=== PATIENT | female | born 1970 | race Caucasian/White ===

== ENCOUNTER 2020-12-07 12:35 | Inpatient (IN) ==
[2020-12-07] MEDS ORDERED: guaiFENesin/CODEINE 10 ML UDC PO ONE (13:49)
[2020-12-07] MEDS ORDERED: DEXAMETHASONE 10 MG/ML VIAL IV ONE ×3 (13:49→19:40)
[2020-12-07] MEDS ORDERED: IPRATROPIUM/ALBUTEROL 3 ML AMPUL.NEB NEB ONE (13:49)
[2020-12-07] MEDS ORDERED: 0.9 % SODIUM CHLORIDE 1,000 ML IV ONE (13:50)
[2020-12-07 13:59] LABS: Hematocrit 42.1 % (34.1-44.9); Hemoglobin 14.6 g/dL (11.2-15.7); Mean Cell Volume 87.5 fL (80.0-100.0); Mean Corpuscular HGB Conc 34.7 g/dL (31.0-36.0); Mean Platelet Volume 10.9 fL (7.4-10.4); Platelet Count 111 K/mcL (140-440); RBC 4.81 M/mcL (3.59-5.38); WBC 7.8 K/mcL (4.5-11.0)
[2020-12-07 14:16] LABS: ALT/SGPT 37 U/L (<40); AST/SGOT 49 U/L (<32); Albumin 3.6 gm/dL (3.2-5.2); Albumin/Globulin Ratio 1.3 (1.0-2.3); Alkaline Phosphatase 45 U/L (39-117); Bilirubin,Total 0.3 mg/dL (0.1-1.0); Blood Urea Nitrogen 9 mg/dL (6-20); Calcium 8.8 mg/dL (8.6-10.4); Carbon Dioxide 22 mmol/L (22-30); Chloride 103 mmol/L (96-108); Globulin 2.8 gm/dL (2.2-3.7); Glomerular Filtration Rate 105; Glucose 91 mg/dL (70-105)
--- NOTE | 2020-12-07 14:19 | Emergency Department Note ---
SOB HPI General Chief Complaint: Shortness of Breath/Dyspnea Stated Complaint: Shortness of breath, covid, nausea Time Seen by Provider: 12/07/20 12:39 Source: patient Mode of arrival: ambulatory Limitations: no limitations History of Present Illness HPI Narrative: This is a 50-year-old female patient who was diagnosed with Covid 19 on Friday at [facility]. Her symptoms started on Friday. She was hypoxic during her evaluation sent home on a liter and a half of oxygen. Since then she has developed frequent diarrhea and worsening shortness of breath now requiring 4 L to keep her oxygen saturation above 94%. Patient does have a history of asthma and thinks she was having an asthma exacerbation about a week prior to development of her viral symptoms. She thought she turned a corner this past Friday, but then got progressively worse over the weekend. She is not vaccinated for Covid. Related Data Home Medications Medication Instructions Recorded Confirmed albuterol sulfate 2 puff INHALATION QID PRN 12/07/20 12/07/20 fluticasone propion-salmeterol 1 inh INHALATION DAILY 12/07/20 12/07/20 montelukast [Singulair] 10 mg PO QHS 12/07/20 12/07/20 Allergies Allergy/AdvReac Type Severity Reaction Status Date / Time codeine Allergy Hives Verified 12/07/20 19:54 iodine Allergy Hives Verified 12/07/20 19:54 morphine AdvReac Headache Verified 12/07/20 12:38 Review of Systems ROS ROS Narrative: Narrative: All systems ED: reviewed and negative except as stated. [facility] Narrative Patient History Narrative: Narrative: Medical/Surgical/Family History All Active Problems (Updated 12/07/20 @ 20:47 by Mima Cook PA-C) Pneumonia due to COVID-19 virus (Acute) Hypoxia (Acute) Social History Smoking Status: Never smoker Exam Narrative Narrative: General: AOx3, NAD, ill appearing. Dyspneic. Audible cough HEENT: PERRLA, EOMI, normocephalic. Moist mucous membranes. Normal facies and normal dentition. Respiratory: Coarse crackles throughout bilateral lung faulkner. Mild respiratory distress with labored breathing. O2 sats 95% on 5 L nasal cannula Heart: Regular rate and rhythm, no murmurs/clicks/rubs. Abdomen: Diffusely tender, nondistended. Extremities: Warm and well perfused. No edema. DP 2+ bilaterally. No venous stasis. Neuro: No focal deficits. Cranial nerves II-XII normal. Skin: Warm dry, no rashes or lesions, no cyanosis. Psych: Normal mood and affect Heme/Lymph: No abnormal bruising General Limitations: no limitations Course Course Course Narrative: 50-year-old female presents with COVID-19 and worsening hypoxia Reevaluation(s) Reevaluation #1: CBC, CMP Chest x-ray, EKG DuoNeb's in IV Decadron's 6 mg x 1 dose Give 1 L IV fluids in the setting of diarrhea Will likely need admission for worsening hypoxia Reevaluation #2: EKG shows normal sinus rhythm with no abnormal ST findings. She has left axis deviation and normal intervals. CBC without leukocytosis Chest x-ray shows bilateral moderate Covid pneumonia CMP with a mild elevation of her AST, otherwise no evidence of endorgan dysfunction Vital Signs Vital signs: Vital Signs Temperature 100.5 F H 12/07/20 12:38 Pulse Rate 92 H 12/07/20 12:38 Respiratory Rate 24 H 12/07/20 12:38 Blood Pressure 130/70 12/07/20 12:38 Pulse Oximetry (%) 87 L 12/07/20 12:38 Temperature 100.6 F H 12/07/20 18:19 Pulse Rate 99 H 12/07/20 18:46 Respiratory Rate 31 H 12/07/20 18:46 Blood Pressure 142/78 12/07/20 18:19 Pulse Oximetry (%) 92 12/07/20 18:46 [facility] Narrative Medical decision making narrative: COVID-19 pneumonia Acute hypoxic respiratory failure Patient has been given 6 mg of IV Decadron x1 dose. She is also received DuoNeb treatments. Given her increasing oxygen requirements she will need admission. Hospitalist has accepted the patient for admission. Lab Data Result diagrams: 12/07/20 13:18 12/07/20 13:18 Labs: Lab Results 12/07/20 12/07/20 12/07/20 Range/Units 13:18 13:18 13:18 WBC 7.8 (4.5-11.0) K/mcL RBC 4.81 (3.59-5.38) M/mcL Hgb 14.6 (11.2-15.7) g/dL Hct 42.1 (34.1-44.9) % MCV 87.5 (80.0-100.0) fL MCH 30.4 (26.0-34.0) pg MCHC 34.7 (31.0-36.0) g/dL RDW 13.0 (11.5-14.5) % Plt Count 111 L (140-440) K/mcL MPV 10.9 H (7.4-10.4) fL Seg Neutrophils % 75 (38-78) % Band Neutrophils % 6 (0-10) % Lymphocytes % 14 L (15-49) % Monocytes % (Manual) 1 (1-12) % Basophils % (Manual) 1 (0-2) % Reactive Lymphocytes 3 H (0-2) % Platelet Estimate Decreased A (Normal) RBC Morphology Normal (Normal) PT (11.9-14.5) sec INR (0.9-1.1) D-Dimer (0.27-0.50) ug/mL Sodium 138 (133-145) mmol/L Potassium 3.6 (3.3-5.1) mmol/L Chloride 103 (96-108) mmol/L Carbon Dioxide 22 (22-30) mmol/L Anion Gap 13.0 (8.0-16.0) BUN 9 (6-20) mg/dL Creatinine 0.6 (0.6-1.1) mg/dL GFR Calculation 105 Glucose 91 (70-105) mg/dL Calcium 8.8 (8.6-10.4) mg/dL Ferritin (13.0-150.0) ng/mL Total Bilirubin 0.3 (0.1-1.0) mg/dL AST 49 H (<32) U/L ALT 37 (<40) U/L Alkaline Phosphatase 45 (39-117) U/L Total Creatine Kinase (24-170) U/L Troponin T < 0.01 (<0.03) ng/mL C-Reactive Protein (0.03-0.80) mg/dL Total Protein 6.4 (5.9-8.4) gm/dL Albumin 3.6 (3.2-5.2) gm/dL Globulin 2.8 (2.2-3.7) gm/dL Albumin/Globulin Ratio 1.3 (1.0-2.3) 12/07/20 12/07/20 12/07/20 Range/Units 13:18 13:18 13:18 WBC (4.5-11.0) K/mcL RBC (3.59-5.38) M/mcL Hgb (11.2-15.7) g/dL Hct (34.1-44.9) % MCV (80.0-100.0) fL MCH (26.0-34.0) pg MCHC (31.0-36.0) g/dL RDW (11.5-14.5) % Plt Count (140-440) K/mcL MPV (7.4-10.4) fL Seg Neutrophils % (38-78) % Band Neutrophils % (0-10) % Lymphocytes % (15-49) % Monocytes % (Manual) (1-12) % Basophils % (Manual) (0-2) % Reactive Lymphocytes (0-2) % Platelet Estimate (Normal) RBC Morphology (Normal) PT 13.5 (11.9-14.5) sec INR 1.0 (0.9-1.1) D-Dimer (0.27-0.50) ug/mL Sodium (133-145) mmol/L Potassium (3.3-5.1) mmol/L Chloride (96-108) mmol/L Carbon Dioxide (22-30) mmol/L Anion Gap (8.0-16.0) BUN (6-20) mg/dL Creatinine (0.6-1.1) mg/dL GFR Calculation Glucose (70-105) mg/dL Calcium (8.6-10.4) mg/dL Ferritin 2037.0 H (13.0-150.0) ng/mL Total Bilirubin (0.1-1.0) mg/dL AST (<32) U/L ALT (<40) U/L Alkaline Phosphatase (39-117) U/L Total Creatine Kinase 371 H (24-170) U/L Troponin T (<0.03) ng/mL C-Reactive Protein 8.80 H (0.03-0.80) mg/dL Total Protein (5.9-8.4) gm/dL Albumin (3.2-5.2) gm/dL Globulin (2.2-3.7) gm/dL Albumin/Globulin Ratio (1.0-2.3) 12/07/20 Range/Units 13:18 WBC (4.5-11.0) K/mcL RBC (3.59-5.38) M/mcL Hgb (11.2-15.7) g/dL Hct (34.1-44.9) % MCV (80.0-100.0) fL MCH (26.0-34.0) pg MCHC (31.0-36.0) g/dL RDW (11.5-14.5) % Plt Count (140-440) K/mcL MPV (7.4-10.4) fL Seg Neutrophils % (38-78) % Band Neutrophils % (0-10) % Lymphocytes % (15-49) % Monocytes % (Manual) (1-12) % Basophils % (Manual) (0-2) % Reactive Lymphocytes (0-2) % Platelet Estimate (Normal) RBC Morphology (Normal) PT (11.9-14.5) sec INR (0.9-1.1) D-Dimer 0.79 H (0.27-0.50) ug/mL Sodium (133-145) mmol/L Potassium (3.3-5.1) mmol/L Chloride (96-108) mmol/L Carbon Dioxide (22-30) mmol/L Anion Gap (8.0-16.0) BUN (6-20) mg/dL Creatinine (0.6-1.1) mg/dL GFR Calculation Glucose (70-105) mg/dL Calcium (8.6-10.4) mg/dL Ferritin (13.0-150.0) ng/mL Total Bilirubin (0.1-1.0) mg/dL AST (<32) U/L ALT (<40) U/L Alkaline Phosphatase (39-117) U/L Total Creatine Kinase (24-170) U/L Troponin T (<0.03) ng/mL C-Reactive Protein (0.03-0.80) mg/dL Total Protein (5.9-8.4) gm/dL Albumin (3.2-5.2) gm/dL Globulin (2.2-3.7) gm/dL Albumin/Globulin Ratio (1.0-2.3) Discharge Plan Patient/Caregiver Discharge Instructions Pt seen by [employer]/PA only: Yes Clinical Impression: Pneumonia due to COVID-19 virus, Hypoxia Patient Disposition: Xfer As Inpt ([facility]) Discharge Date/Time: 12/07/20 18:03
[2020-12-07 14:26] LABS: Band Neutrophils % 6 % (0-10); Basophils % (Manual) 1 % (0-2); Lymphocytes % 14 % (15-49); Monocytes % (Manual) 1 % (1-12); Platelet Estimate DECREASED (Normal); RBC Morphology NORMAL (Normal); Reactive Lymphocytes 3 % (0-2); Segmented Neutrophils % 75 % (38-78)
--- NOTE | 2020-12-07 14:57 | XRay Report ---
HISTORY: Short of breath, tested positive for COVID FINDINGS: There are moderate alveolar infiltrates in both lungs. This is a patchy distribution. There is mild elevation right diaphragm. No pleural effusion is present. The heart size is normal. No prior study is available for comparison. IMPRESSION: Moderate bilateral Covid pneumonia Interpreted and Authenticated by: Jed Khan 12/07/20
--- NOTE | 2020-12-07 15:48 | Internal Med History&Physical ---
HPI History of Present Illness Patient information: Note initiated : 12/07/20 at 3:42 pm Service Date, if different from initiated Date: [] Patient: Sonia Pedro a 50 y/o F admitted on for Shortness of breath, covid, nausea. Chief Complaint: [] History of present illness: Ms. Pedro is a 50 year old F Presents to the ED with shortness of breath and cough. Patient was seen at [facility] on Friday and diagnosed with Covid pneumonia. She went back the next 2 days at [place] and was given oxygen. Because she was not feeling any better she came here. Symptoms also include fever chills diarrhea nausea but no vomiting. She feels her symptoms have worsened and she placed herself on 4 L to keep her oxygen above 94%. She developed some diarrhea as well. Patient states that over week ago she felt she had an asthma exacerbation and then felt to be improving especially on Friday but then Friday started becoming ill again. She is not vaccinated against Covid. In ED she had chest x-ray which showed bilateral infiltrates. She had a temperature of 100.5. 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 Denies headache/vomiting. Remaining 10 point review of system reviewed negative MEDS/ALLERGIES Home Medications and Allergies Allergies Allergy/AdvReac Type Severity Reaction Status Date / Time codeine Allergy Unknown Verified 12/07/20 12:38 iodine Allergy Unknown Verified 12/07/20 12:38 morphine AdvReac Headache Verified 12/07/20 12:38 EXAM Constitutional Vitals: Temp Pulse Resp BP Pulse Ox 100.5 F H 93 H 24 H 110/61 90 12/07/20 12:38 12/07/20 14:35 12/07/20 12:38 12/07/20 14:31 12/07/20 14:35 Exam: General: Alert, Awake, No acute Distress, obese Eyes/N/T: EOMI, PERRL, Head/Neck: neck supple, normocephalic atraumatic CV: RRR, No murmurs, normal s1/s2 Pulm: Rhonchi/rales b/l, no wheezing Abd: soft, nontender, +BS x4 Ext: no clubbing/cyanosis/edema Neuro: Alert, no focal deficits, moves all extremities, CN 2-12 grossly intact, symmetrical strength b/l upper/lower, sensations intact b/l upper/lower Skin: warm/dry DATA Data Completed and Pending Labs: Labs from last 24 hours 12/07/20 12/07/20 12/07/20 13:18 13:18 13:18 WBC 7.8 RBC 4.81 Hgb 14.6 Hct 42.1 MCV 87.5 MCH 30.4 MCHC 34.7 RDW 13.0 Plt Count 111 L MPV 10.9 H Seg Neutrophils % 75 Band Neutrophils % 6 Lymphocytes % 14 L Monocytes % (Manual) 1 Basophils % (Manual) 1 Reactive Lymphocytes 3 H Platelet Estimate Decreased A RBC Morphology Normal Sodium 138 Potassium 3.6 Chloride 103 Carbon Dioxide 22 Anion Gap 13.0 BUN 9 Creatinine 0.6 GFR Calculation 105 Glucose 91 Calcium 8.8 Total Bilirubin 0.3 AST 49 H ALT 37 Alkaline Phosphatase 45 Troponin T < 0.01 Total Protein 6.4 Albumin 3.6 Globulin 2.8 Albumin/Globulin Ratio 1.3 A/P Narrative A/P Narrative: A: *Covid pneumonia w/ : *Acute hypoxic respiratory failure: -on 4-5L NC *h/o Asthma: *Obesity: * P: -Remdesivir/dexamethasone -Check ABG -Check inflammatory markers -Proning, mobilization and oob to chair -IS, prn nebs/IH's - -ppx: lovenox bid full code Time Spent With Patient Time: Total time spent is greater than 50% in coordination of care (as documented) at patient's floor/unit and/or counseling patient:
[2020-12-07 17:00] LABS: Prothrombin Time 13.5 sec (11.9-14.5)
[2020-12-07] MEDS ORDERED: REMDESIVIR 200 MG in 0.9 % SODIUM CHLORIDE 250 ML IV ONE (17:00)
[2020-12-07] MEDS ORDERED: REMDESIVIR 100 MG in 0.9 % SODIUM CHLORIDE 250 ML IV SCH (18:12)
[2020-12-07] MEDS ORDERED: IPRATROPIUM/ALBUTEROL 3 ML AMPUL.NEB NEB PRN (18:12)
[2020-12-07] MEDS ORDERED: POLYETHYLENE GLYCOL 3350 17 GM PACKET PO PRN (18:12)
[2020-12-07] MEDS ORDERED: MAGNESIUM SULFATE 2 GM/50 ML BAG IV PRN (18:12)
[2020-12-07] MEDS ORDERED: POTASSIUM CHLORIDE 40 MEQ in DEXTROSE 5% IN WATER 500 ML IV PRN (18:12)
[2020-12-07] MEDS ORDERED: POTASSIUM CHLORIDE 20 MEQ TABLET PO PRN ×2 (18:12)
[2020-12-07] MEDS: MONTELUKAST 10 MG TABLET PO SCH (20:50)
[2020-12-07] MEDS: ENOXAPARIN 40 MG/0.4 ML SYRINGE SQ SCH (20:50)
[2020-12-07] MEDS: 0.9 % SODIUM CHLORIDE 10 ML SYRINGE IV SCH (20:52)
[2020-12-07] MEDS: IPRATROPIUM/ALBUTEROL SULFATE 1 PUFF INHALER INH SCH (21:00)
[2020-12-08] MEDS: 0.9 % SODIUM CHLORIDE 10 ML SYRINGE IV SCH ×3 (05:44→19:30)
[2020-12-08 07:45] LABS: Basophils # (Auto) 0 K/mcL (0.00-0.30); Basophils % (Auto) 0 % (0.0-2.0); Eosinophils # (Auto) 0 K/mcL (0.00-0.70); Eosinophils % (Auto) 0 % (0.0-7.0); Hemoglobin 14.6 g/dL (11.2-15.7); Lymphocytes # (Auto) 0.66 K/mcL (1.50-4.80); Lymphocytes % (Auto) 11.8 % (15.5-49.0); Mean Cell Volume 86.8 fL (80.0-100.0); Mean Corpuscular HGB Conc 34.8 g/dL (31.0-36.0); Mean Platelet Volume 10.8 fL (7.4-10.4); Monocytes # (Auto) 0.25 K/mcL (0.10-0.90); Monocytes % (Auto) 4.5 % (1.0-12.0); Neutrophils % (Auto) 83.7 % (38.0-78.0); Platelet Count 117 K/mcL (140-440); RBC 4.84 M/mcL (3.59-5.38); Red Cell Distribution Width 12.7 % (11.5-14.5); WBC 5.6 K/mcL (4.5-11.0)
--- NOTE | 2020-12-08 08:04 | Internal Med Progress Note ---
SUBJECTIVE Subjective Patient information: Note initiated : 12/08/20 at 8:01 am Service Date, if different from initiated Date: [] Patient: Sonia Pedro a 50 y/o F admitted on 12/07/20 for Shortness of breath, covid, nausea. Chief Complaint: [] Interval history: History of present illness: Ms. Pedro is a 50 year old F Presents to the ED with shortness of breath and cough. Patient was seen at [facility] on Friday and diagnosed with Covid pneumonia. She went back the next 2 days at [place] and was given oxygen. Because she was not feeling any better she came here. Symptoms also include fever chills diarrhea nausea but no vomiting. She feels her symptoms have worsened and she placed herself on 4 L to keep her oxygen above 94%. She developed some diarrhea as well. Patient states that over week ago she felt she had an asthma exacerbation and then felt to be improving especially on Friday but then Friday started becoming ill again. She is not vaccinated against Covid. In ED she had chest x-ray which showed bilateral infiltrates. She had a temperature of 100.5. 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 Breathing okay at rest but quite short of breath with movement. Inflammatory markers little worse today. Patient on Vapotherm FiO2 70%, patient worsened from the time she arrived in the ED. Has cough. Review of Systems: denies headache/fever/chills/nausea/vomiting/chest or abdominal pain/diarrhea. Otherwise see above. Constitutional Vitals: Vital Signs Temp Pulse Resp BP Pulse Ox 98.9 F 83 24 H 121/75 93 12/08/20 04:01 12/08/20 06:01 12/08/20 06:01 12/08/20 06:01 12/08/20 06:01 Period Temp Pulse Resp BP Sys/Lion Pulse Ox Last 24 Hr 98.0 F-100.6 F 76-99 17-34 94-143/56-91 6-96 Intake and Output 12/07/20 12/08/20 12/08/20 21:59 05:59 13:59 Intake Total 1280 Output Total 525 401 275 Balance 755 -401 -275 Weight 80.694 kg Intake & Output: Intake & Output 12/07/20 12/08/20 12/08/20 21:59 05:59 13:59 Intake Total 1280 Output Total 525 401 275 Balance 755 -401 -275 Weight 80.694 kg Intake: IV 1250 Sodium Chloride 0.9% 1,000 ml @ 1000 Wide Open IV BOLUS ONE Rx#: [id number] Veklury 200 mg In Sodium 250 Chloride 0.9% 250 ml @ 500 mls/ hr IV ONCE ONE Rx#:[id number] Oral 30 Output: Void Amount 525 400 275 # of times incontinent of urine 1 Other: Urine Appearance Clear Clear Clear Urine Color Bright Yellow Bright Yellow Bright Yellow Urine Odor Normal Normal Normal Exam: General: Alert, Awake, No acute Distress, obese Eyes/N/T: EOMI, Head/Neck: neck supple, CV: RRR, No murmurs, normal s1/s2 Pulm: Rhonchi/rales b/l, no wheezing Abd: soft, nontender, +BS x4 Ext: no clubbing/cyanosis/edema Neuro: Alert, no focal deficits, moves all extremities, Skin: warm/dry OBJ DATA Labs CBC & Chem 7: 12/08/20 05:53 12/08/20 05:53 Labs: Abnormal Lab Results 12/08/20 12/08/20 12/07/20 05:54 05:53 13:18 Plt Count 117 L MPV 10.8 H Neut % (Auto) 83.7 H Lymph % (Auto) 11.8 L Lymph # (Auto) 0.66 L Lymphocytes % Reactive Lymphocytes Platelet Estimate D-Dimer 0.79 H Ferritin AST Total Creatine Kinase 449 H C-Reactive Protein 12/07/20 12/07/20 12/07/20 13:18 13:18 13:18 Plt Count MPV Neut % (Auto) Lymph % (Auto) Lymph # (Auto) Lymphocytes % Reactive Lymphocytes Platelet Estimate D-Dimer Ferritin 2037.0 H AST 49 H Total Creatine Kinase 371 H C-Reactive Protein 8.80 H 12/07/20 13:18 Plt Count 111 L MPV 10.9 H Neut % (Auto) Lymph % (Auto) Lymph # (Auto) Lymphocytes % 14 L Reactive Lymphocytes 3 H Platelet Estimate Decreased A D-Dimer Ferritin AST Total Creatine Kinase C-Reactive Protein Meds: Medications Acetaminophen (Acetaminophen 325 Mg Tablet) 650 mg PO Q6HP PRN PRN Reason: PAIN/FEVER > 101 Albuterol/Ipratropium (Ipratropium/Albuterol 3 Ml Ampul.Neb) 3 ml NEB Q4HP PRN PRN Reason: Shortness Of Breath Albuterol/Ipratropium (Ipratropium/Albuterol Sulfate 1 Puff Inhaler) 2 puff INH TID [facility] Last Admin: 12/07/20 21:00 Dose: Not Given Documented by: Dexamethasone (Dexamethasone 4 Mg Tablet) 6 mg PO DAILY [facility] Enoxaparin Sodium (Enoxaparin 40 Mg/0.4 Ml Syringe) 40 mg SQ BID [facility] Last Admin: 12/07/20 20:50 Dose: 40 mg Documented by: Potassium Chloride 40 meq/ (Dextrose) 520 mls @ 130 mls/hr IV UD PRN PRN Reason: Potassium < 3 Magnesium Sulfate (Magnesium Sulfate) 2 gm in 50 mls @ 50 mls/hr IV UD PRN PRN Reason: Magnesium </= 1.6 REMDESIVIR 100 mg/ Sodium (Chloride) 250 mls @ 500 mls/hr IV DAILY@1200 [facility] Stop: 12/11/20 12:29 Montelukast Sodium (Montelukast 10 Mg Tablet) 10 mg PO HS [facility] Last Admin: 12/07/20 20:50 Dose: 10 mg Documented by: Ondansetron HCl (Ondansetron 4 Mg/2 Ml Vial) 4 mg IV Q4HP PRN PRN Reason: Nausea And Vomiting Polyethylene Glycol (Polyethylene Glycol 3350 17 Gm Packet) 17 gm PO DAILYP PRN PRN Reason: Constipation Potassium Chloride (Potassium Chloride 20 Meq Tablet) 40 meq PO UD PRN PRN Reason: Potssium is 3-3.5 Potassium Chloride (Potassium Chloride 20 Meq Tablet) 40 meq PO UD PRN PRN Reason: Potassium < 3 Fluticasone/Salmeterol (Fluticasone/Salmeterol 250/50 Inhaler #14) 1 puff INH DAILY [facility] Senna (Sennosides 1 Tablet) 2 tab PO DAILYP PRN PRN Reason: Constipation Sodium Chloride (0.9 % Sodium Chloride 10 Ml Syringe) 10 ml IV Q8 [facility] Last Admin: 12/08/20 05:44 Dose: 10 ml Documented by: Zinc Sulfate (Zinc Sulfate 50 Mg Capsule) 50 mg PO DAILY [facility] A/P Narrative A/P Narrative: A: *Covid pneumonia w/ARDS: worsening *Acute hypoxic respiratory failure: -on vapotherm @ 70% & 45 l/m *h/o Asthma: *Obesity: *thrombocytopenia, unknown chronicity: P: -Remdesivir/dexamethasone -f/u inflammatory markers -Proning, mobilization and oob to chair -IS, prn nebs/IH's -pt/ot -ppx: lovenox bid full code Time Spent With Patient Time: Total time spent is greater than 50% in coordination of care (as doc umented) at patient's floor/unit and/or counseling patient: QUALITY Stroke Symptom Onset Unknown: No VTE Deep Vein Thrombosis/Pulmonary Embolism Present on Admission: No
[2020-12-08 08:08] LABS: ALT/SGPT 39 U/L (<40); AST/SGOT 53 U/L (<32); Albumin 3.4 gm/dL (3.2-5.2); Albumin/Globulin Ratio 1.1 (1.0-2.3); Alkaline Phosphatase 45 U/L (39-117); Bilirubin,Direct < 0.2 mg/dL (0-0.3); Bilirubin,Total 0.3 mg/dL (0.1-1.0); Blood Urea Nitrogen 9 mg/dL (6-20); Calcium 8.8 mg/dL (8.6-10.4); Carbon Dioxide 20 mmol/L (22-30); Chloride 97 mmol/L (96-108); Globulin 3.1 gm/dL (2.2-3.7); Glomerular Filtration Rate 111; Glucose 109 mg/dL (70-105); Lactate Dehydrogenase 644 U/L (135-225); Phosphorous 3.1 mg/dL (2.5-4.5); Triglycerides 108 mg/dL (<150); Uric Acid 5.3 mg/dL (2.5-8.0)
[2020-12-08] MEDS: ENOXAPARIN 40 MG/0.4 ML SYRINGE SQ SCH ×2 (08:28→20:42)
[2020-12-08] MEDS: ZINC SULFATE 50 MG CAPSULE PO SCH (08:28)
[2020-12-08] MEDS: DEXAMETHASONE 4 MG TABLET PO SCH (08:28)
[2020-12-08] MEDS: ACETAMINOPHEN 325 MG TABLET PO PRN (08:28)
[2020-12-08] MEDS: BENZONATATE 100 MG CAPSULE PO PRN ×3 (10:25→23:20)
[2020-12-08] MEDS ORDERED: SODIUM CHLORIDE 0.9% IV ONE (11:00)
[2020-12-08] MEDS ORDERED: TOCILIZUMAB IV ONE (11:00)
[2020-12-08] MEDS: FLUTICASONE/SALMETEROL 250/50 INHALER #14 INH SCH (11:37)
[2020-12-08] MEDS: IPRATROPIUM/ALBUTEROL SULFATE 1 PUFF INHALER INH SCH (11:37)
[2020-12-08] MEDS: REMDESIVIR 100 MG in 0.9 % SODIUM CHLORIDE 250 ML IV SCH (13:00)
[2020-12-08] MEDS: HYDROcodone/APAP 5/325MG TABLET PO PRN ×2 (16:39→20:42)
[2020-12-08] MEDS: MONTELUKAST 10 MG TABLET PO SCH (20:42)
[2020-12-09] MEDS: HYDROcodone/APAP 5/325MG TABLET PO PRN ×4 (02:36→18:37)
[2020-12-09] MEDS: 0.9 % SODIUM CHLORIDE 10 ML SYRINGE IV SCH ×4 (02:55→19:00)
[2020-12-09 08:04] LABS: ALT/SGPT 42 U/L (<40); AST/SGOT 45 U/L (<32); Albumin 3.2 gm/dL (3.2-5.2); Albumin/Globulin Ratio 1.1 (1.0-2.3); Alkaline Phosphatase 40 U/L (39-117); Bilirubin,Direct < 0.2 mg/dL (0-0.3); Bilirubin,Total 0.3 mg/dL (0.1-1.0); Blood Urea Nitrogen 16 mg/dL (6-20); Calcium 8.7 mg/dL (8.6-10.4); Carbon Dioxide 25 mmol/L (22-30); Chloride 99 mmol/L (96-108); Globulin 2.8 gm/dL (2.2-3.7); Glomerular Filtration Rate 111; Glucose 185 mg/dL (70-105); Lactate Dehydrogenase 578 U/L (135-225); Phosphorous 2.8 mg/dL (2.5-4.5); Triglycerides 144 mg/dL (<150); Uric Acid 4.3 mg/dL (2.5-8.0)
--- NOTE | 2020-12-09 08:14 | Internal Med Progress Note ---
SUBJECTIVE Subjective Patient information: Note initiated : 12/09/20 at 8:12 am Service Date, if different from initiated Date: [] Patient: Sonia Pedro a 50 y/o F admitted on 12/07/20 for Shortness of breath, covid, nausea. Chief Complaint: [] Interval history: History of present illness: Ms. Pedro is a 50 year old F Presents to the ED with shortness of breath and cough. Patient was seen at [facility] on Friday and diagnosed with Covid pneumonia. She went back the next 2 days at [place] and was given oxygen. Because she was not feeling any better she came here. Symptoms also include fever chills diarrhea nausea but no vomiting. She feels her symptoms have worsened and she placed herself on 4 L to keep her oxygen above 94%. She developed some diarrhea as well. Patient states that over week ago she felt she had an asthma exacerbation and then felt to be improving especially on Friday but then Friday started becoming ill again. She is not vaccinated against Covid. In ED she had chest x-ray which showed bilateral infiltrates. She had a temperature of 100.5. 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 Breathing okay at rest but quite short of breath with movement. Inflammatory markers little worse today. Patient on Vapotherm FiO2 70%, patient worsened from the time she arrived in the ED. Has cough. 12/09 Patient feeling better today and slept well. She feels she is able to move around in her bed without becoming severely short of breath. FiO2 down to 65%. Has cough. Review of Systems: denies headache/fever/chills/nausea/vomiting/chest or abdominal pain/diarrhea. Otherwise see above. Constitutional Vitals: Vital Signs Temp Pulse Resp BP Pulse Ox 98.5 F 64 19 97/57 90 12/09/20 04:01 12/09/20 07:30 12/09/20 07:30 12/09/20 06:01 12/09/20 07:30 Period Temp Pulse Resp BP Sys/Lion Pulse Ox Last 24 Hr 97.2 F-98.5 F 56-85 15-23 95-145/57-87 90-96 Intake and Output 12/08/20 12/09/20 12/09/20 21:59 05:59 13:59 Intake Total 690 240 Output Total 500 250 250 Balance 190 -10 -250 Weight 78.381 kg Intake & Output: Intake & Output 12/08/20 12/09/20 12/09/20 21:59 05:59 13:59 Intake Total 690 240 Output Total 500 250 250 Balance 190 -10 -250 Weight 78.381 kg Intake: Nourishment/Supplement quantity 240 240 (ml) Oral 450 Output: Void Amount 500 250 250 Other: Meal Nourishment/Supplement Nourishment/Supplement Nourishment/Supplement name Ensure Clear Ensure Clear Urine Appearance Clear Clear Cloudy Urine Color Bright Yellow Bright Yellow Bright Yellow Urine Odor Normal Normal Normal Exam: General: Alert, Awake, No acute Distress, obese Eyes/N/T: EOMI, Head/Neck: neck supple, CV: RRR, No murmurs, normal s1/s2 Pulm: Rhonchi/rales b/l improving, no wheezing Abd: soft, nontender, +BS x4 Ext: no clubbing/cyanosis/edema Neuro: Alert, no focal deficits, moves all extremities, Skin: warm/dry OBJ DATA Labs CBC & Chem 7: 12/08/20 05:53 12/09/20 05:44 Labs: Abnormal Lab Results 12/09/20 12/09/20 12/08/20 05:44 05:44 05:54 Plt Count MPV Neut % (Auto) Lymph % (Auto) Lymph # (Auto) Lymphocytes % Reactive Lymphocytes Platelet Estimate D-Dimer Carbon Dioxide Anion Gap Creatinine 0.5 L Glucose 185 H Ferritin AST 45 H ALT 42 H Lactate Dehydrogenase 578 H Total Creatine Kinase 456 H 449 H C-Reactive Protein 3.70 H 12/08/20 12/08/20 12/07/20 05:53 05:53 13:18 Plt Count 117 L MPV 10.8 H Neut % (Auto) 83.7 H Lymph % (Auto) 11.8 L Lymph # (Auto) 0.66 L Lymphocytes % Reactive Lymphocytes Platelet Estimate D-Dimer 0.79 H Carbon Dioxide 20 L Anion Gap 17.0 H Creatinine 0.5 L Glucose 109 H Ferritin 2562.0 H AST 53 H ALT Lactate Dehydrogenase 644 H Total Creatine Kinase C-Reactive Protein 11.10 H 12/07/20 12/07/20 12/07/20 13:18 13:18 13:18 Plt Count MPV Neut % (Auto) Lymph % (Auto) Lymph # (Auto) Lymphocytes % Reactive Lymphocytes Platelet Estimate D-Dimer Carbon Dioxide Anion Gap Creatinine Glucose Ferritin 2037.0 H AST 49 H ALT Lactate Dehydrogenase Total Creatine Kinase 371 H C-Reactive Protein 8.80 H 12/07/20 13:18 Plt Count 111 L MPV 10.9 H Neut % (Auto) Lymph % (Auto) Lymph # (Auto) Lymphocytes % 14 L Reactive Lymphocytes 3 H Platelet Estimate Decreased A D-Dimer Carbon Dioxide Anion Gap Creatinine Glucose Ferritin AST ALT Lactate Dehydrogenase Total Creatine Kinase C-Reactive Protein Meds: Medications Acetaminophen (Acetaminophen 325 Mg Tablet) 650 mg PO Q6HP PRN PRN Reason: PAIN/FEVER > 101 Last Admin: 12/08/20 08:28 Dose: 650 mg Documented by: Hydrocodone Bitart/Acetaminophen (Hydrocodone/Apap 5/325mg Tablet) 1 tab PO Q4HP PRN; Protocol PRN Reason: Per Pain Protocol Last Admin: 12/09/20 02:36 Dose: 1 tab Documented by: Albuterol/Ipratropium (Ipratropium/Albuterol 3 Ml Ampul.Neb) 3 ml NEB Q4HP PRN PRN Reason: Shortness Of Breath Benzonatate (Benzonatate 100 Mg Capsule) 200 mg PO TIDP PRN PRN Reason: Cough Last Admin: 12/08/20 23:20 Dose: 200 mg Documented by: Dexamethasone (Dexamethasone 4 Mg Tablet) 6 mg PO DAILY [facility] Last Admin: 12/08/20 08:28 Dose: 6 mg Documented by: Enoxaparin Sodium (Enoxaparin 40 Mg/0.4 Ml Syringe) 40 mg SQ BID [facility] Last Admin: 12/08/20 20:42 Dose: 40 mg Documented by: Potassium Chloride 40 meq/ (Dextrose) 520 mls @ 130 mls/hr IV UD PRN PRN Reason: Potassium < 3 Magnesium Sulfate (Magnesium Sulfate) 2 gm in 50 mls @ 50 mls/hr IV UD PRN PRN Reason: Magnesium </= 1.6 REMDESIVIR 100 mg/ Sodium (Chloride) 250 mls @ 500 mls/hr IV DAILY@1200 [facility] Stop: 12/11/20 12:29 Last Infusion: 12/08/20 13:31 Dose: Infused Documented by: Montelukast Sodium (Montelukast 10 Mg Tablet) 10 mg PO HS [facility] Last Admin: 12/08/20 20:42 Dose: 10 mg Documented by: Ondansetron HCl (Ondansetron 4 Mg/2 Ml Vial) 4 mg IV Q4HP PRN PRN Reason: Nausea And Vomiting Polyethylene Glycol (Polyethylene Glycol 3350 17 Gm Packet) 17 gm PO DAILYP PRN PRN Reason: Constipation Potassium Chloride (Potassium Chloride 20 Meq Tablet) 40 meq PO UD PRN PRN Reason: Potssium is 3-3.5 Potassium Chloride (Potassium Chloride 20 Meq Tablet) 40 meq PO UD PRN PRN Reason: Potassium < 3 Fluticasone/Salmeterol (Fluticasone/Salmeterol 250/50 Inhaler #14) 1 puff INH DAILY [facility] Last Admin: 12/08/20 11:37 Dose: Not Given Documented by: Senna (Sennosides 1 Tablet) 2 tab PO DAILYP PRN PRN Reason: Constipation Sodium Chloride (0.9 % Sodium Chloride 10 Ml Syringe) 10 ml IV Q8 [facility] Last Admin: 12/09/20 05:45 Dose: 10 ml Documented by: Zinc Sulfate (Zinc Sulfate 50 Mg Capsule) 50 mg PO DAILY [facility] Last Admin: 12/08/20 08:28 Dose: 50 mg Documented by: A/P Narrative A/P Narrative: A: *Covid pneumonia w/ARDS: stable today *Acute hypoxic respiratory failure: -on vapotherm @ 65% & 45 l/m *h/o Asthma: *Obesity: *thrombocytopenia, unknown chronicity: stable P: -Remdesivir/dexamethasone. s/p Tocilizumab (12/08). -f/u inflammatory markers -O2 supp, wean as able -IS, prn nebs/IH's -Proning, mobilization and oob to chair -pt/ot -ppx: lovenox bid full code Time Spent With Patient Time: Total time spent is greater than 50% in coordination of care (as documented) at patient's floor/unit and/or counseling patient: QUALITY Stroke Symptom Onset Unknown: No VTE Deep Vein Thrombosis/Pulmonary Embolism Present on Admission: No
[2020-12-09] MEDS: FLUTICASONE/SALMETEROL 250/50 INHALER #14 INH SCH (08:28)
[2020-12-09] MEDS: DEXAMETHASONE 4 MG TABLET PO SCH (08:29)
[2020-12-09] MEDS: BENZONATATE 100 MG CAPSULE PO PRN ×2 (08:29→17:15)
[2020-12-09] MEDS: ZINC SULFATE 50 MG CAPSULE PO SCH (08:29)
[2020-12-09] MEDS: ENOXAPARIN 40 MG/0.4 ML SYRINGE SQ SCH ×2 (08:30→20:48)
[2020-12-09] MEDS: REMDESIVIR 100 MG in 0.9 % SODIUM CHLORIDE 250 ML IV SCH (12:33)
[2020-12-09] MEDS: BENZOCAINE/MENTHOL 1 LOZENGE PO PRN (12:33)
[2020-12-09] MEDS: MONTELUKAST 10 MG TABLET PO SCH (20:48)
[2020-12-10] MEDS: BENZONATATE 100 MG CAPSULE PO PRN ×2 (00:50→13:31)
[2020-12-10] MEDS: HYDROcodone/APAP 5/325MG TABLET PO PRN ×4 (00:50→19:26)
[2020-12-10] MEDS: 0.9 % SODIUM CHLORIDE 10 ML SYRINGE IV SCH ×4 (05:30→22:00)
[2020-12-10] MEDS: BENZOCAINE/MENTHOL 1 LOZENGE PO PRN ×2 (07:05→17:52)
--- NOTE | 2020-12-10 08:30 | Internal Med Progress Note ---
SUBJECTIVE Subjective Patient information: Note initiated : 12/10/20 at 8:27 am Service Date, if different from initiated Date: [] Patient: Sonia Pedro a 50 y/o F admitted on 12/07/20 for Shortness of breath, covid, nausea. Chief Complaint: [] Interval history: History of present illness: Ms. Pedro is a 50 year old F Presents to the ED with shortness of breath and cough. Patient was seen at [facility] on Friday and diagnosed with Covid pneumonia. She went back the next 2 days at [place] and was given oxygen. Because she was not feeling any better she came here. Symptoms also include fever chills diarrhea nausea but no vomiting. She feels her symptoms have worsened and she placed herself on 4 L to keep her oxygen above 94%. She developed some diarrhea as well. Patient states that over week ago she felt she had an asthma exacerbation and then felt to be improving especially on Friday but then Friday started becoming ill again. She is not vaccinated against Covid. In ED she had chest x-ray which showed bilateral infiltrates. She had a temperature of 100.5. 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 Breathing okay at rest but quite short of breath with movement. Inflammatory markers little worse today. Patient on Vapotherm FiO2 70%, patient worsened from the time she arrived in the ED. Has cough. 12/09 Patient feeling better today and slept well. She feels she is able to move around in her bed without becoming severely short of breath. FiO2 down to 65%. Has cough. 12/10 Patient feels like she is slowly improving. FiO2 down to 50% with a flow 35. Laboratory markers improving. Minimal cough. Less shortness of breath. Review of Systems: denies headache/fever/chills/nausea/vomiting/chest or abdominal pain/diarrhea. Otherwise see above. Constitutional Vitals: Vital Signs Temp Pulse Resp BP Pulse Ox 97.9 F 62 14 107/78 90 12/10/20 08:01 12/10/20 08:01 12/10/20 08:01 12/10/20 08:01 12/10/20 08:01 Period Temp Pulse Resp BP Sys/Lion Pulse Ox Last 24 Hr 97.9 F-98.4 F 51-66 12-23 97-138/59-79 90-97 Intake and Output 12/09/20 12/10/20 12/10/20 21:59 05:59 13:59 Intake Total 540 120 Output Total 125 375 Balance 415 -255 Weight 79.605 kg Intake & Output: Intake & Output 12/09/20 12/10/20 12/10/20 21:59 05:59 13:59 Intake Total 540 120 Output Total 125 375 Balance 415 -255 Weight 79.605 kg Intake: Nourishment/Supplement quantity 240 (ml) Oral 300 120 Output: Void Amount 125 375 Other: Meal Dinner Percent of Meal Consumed 75% Feeding Ability Independent Nourishment/Supplement name Ensure Clear Urine Appearance Cloudy Cloudy Cloudy Urine Color Bright Yellow Bright Yellow Urine Odor Strong Normal Exam: General: Alert, Awake, No acute Distress, obese Eyes/N/T: EOMI, Head/Neck: neck supple, CV: RRR, No murmurs, normal s1/s2 Pulm: Rhonchi/rales b/l continue to improve, no wheezing Abd: soft, nontender, +BS x4 Ext: no clubbing/cyanosis/edema Neuro: Alert, no focal deficits, moves all extremities, Skin: warm/dry OBJ DATA Labs CBC & Chem 7: 12/08/20 05:53 12/09/20 05:44 Labs: Abnormal Lab Results 12/09/20 12/09/20 12/08/20 05:44 05:44 05:54 Plt Count MPV Neut % (Auto) Lymph % (Auto) Lymph # (Auto) Lymphocytes % Reactive Lymphocytes Platelet Estimate D-Dimer Carbon Dioxide Anion Gap Creatinine 0.5 L Glucose 185 H Ferritin AST 45 H ALT 42 H Lactate Dehydrogenase 578 H Total Creatine Kinase 456 H 449 H C-Reactive Protein 3.70 H 12/08/20 12/08/20 12/07/20 05:53 05:53 13:18 Plt Count 117 L MPV 10.8 H Neut % (Auto) 83.7 H Lymph % (Auto) 11.8 L Lymph # (Auto) 0.66 L Lymphocytes % Reactive Lymphocytes Platelet Estimate D-Dimer 0.79 H Carbon Dioxide 20 L Anion Gap 17.0 H Creatinine 0.5 L Glucose 109 H Ferritin 2562.0 H AST 53 H ALT Lactate Dehydrogenase 644 H Total Creatine Kinase C-Reactive Protein 11.10 H 12/07/20 12/07/20 12/07/20 13:18 13:18 13:18 Plt Count MPV Neut % (Auto) Lymph % (Auto) Lymph # (Auto) Lymphocytes % Reactive Lymphocytes Platelet Estimate D-Dimer Carbon Dioxide Anion Gap Creatinine Glucose Ferritin 2037.0 H AST 49 H ALT Lactate Dehydrogenase Total Creatine Kinase 371 H C-Reactive Protein 8.80 H 12/07/20 13:18 Plt Count 111 L MPV 10.9 H Neut % (Auto) Lymph % (Auto) Lymph # (Auto) Lymphocytes % 14 L Reactive Lymphocytes 3 H Platelet Estimate Decreased A D-Dimer Carbon Dioxide Anion Gap Creatinine Glucose Ferritin AST ALT Lactate Dehydrogenase Total Creatine Kinase C-Reactive Protein Meds: Medications Acetaminophen (Acetaminophen 325 Mg Tablet) 650 mg PO Q6HP PRN PRN Reason: PAIN/FEVER > 101 Last Admin: 12/08/20 08:28 Dose: 650 mg Documented by: Hydrocodone Bitart/Acetaminophen (Hydrocodone/Apap 5/325mg Tablet) 1 tab PO Q4HP PRN; Protocol PRN Reason: Per Pain Protocol Last Admin: 12/10/20 07:07 Dose: 1 tab Documented by: Albuterol/Ipratropium (Ipratropium/Albuterol 3 Ml Ampul.Neb) 3 ml NEB Q4HP PRN PRN Reason: Shortness Of Breath Benzonatate (Benzonatate 100 Mg Capsule) 200 mg PO TIDP PRN PRN Reason: Cough Last Admin: 12/10/20 00:50 Dose: 200 mg Documented by: Dexamethasone (Dexamethasone 4 Mg Tablet) 6 mg PO DAILY [facility] Last Admin: 12/09/20 08:29 Dose: 6 mg Documented by: Enoxaparin Sodium (Enoxaparin 40 Mg/0.4 Ml Syringe) 40 mg SQ BID [facility] Last Admin: 12/09/20 20:48 Dose: 40 mg Documented by: Potassium Chloride 40 meq/ (Dextrose) 520 mls @ 130 mls/hr IV UD PRN PRN Reason: Potassium < 3 Magnesium Sulfate (Magnesium Sulfate) 2 gm in 50 mls @ 50 mls/hr IV UD PRN PRN Reason: Magnesium </= 1.6 REMDESIVIR 100 mg/ Sodium (Chloride) 250 mls @ 500 mls/hr IV DAILY@1200 [facility] Stop: 12/11/20 12:29 Last Infusion: 12/09/20 13:05 Dose: Infused Documented by: Montelukast Sodium (Montelukast 10 Mg Tablet) 10 mg PO HS [facility] Last Admin: 12/09/20 20:48 Dose: 10 mg Documented by: Ondansetron HCl (Ondansetron 4 Mg/2 Ml Vial) 4 mg IV Q4HP PRN PRN Reason: Nausea And Vomiting Polyethylene Glycol (Polyethylene Glycol 3350 17 Gm Packet) 17 gm PO DAILYP PRN PRN Reason: Constipation Potassium Chloride (Potassium Chloride 20 Meq Tablet) 40 meq PO UD PRN PRN Reason: Potssium is 3-3.5 Potassium Chloride (Potassium Chloride 20 Meq Tablet) 40 meq PO UD PRN PRN Reason: Potassium < 3 Fluticasone/Salmeterol (Fluticasone/Salmeterol 250/50 Inhaler #14) 1 puff INH DAILY [facility] Last Admin: 12/09/20 08:28 Dose: 1 dose Documented by: Senna (Sennosides 1 Tablet) 2 tab PO DAILYP PRN PRN Reason: Constipation Sodium Chloride (0.9 % Sodium Chloride 10 Ml Syringe) 10 ml IV Q8 [facility] Last Admin: 12/10/20 05:30 Dose: 10 ml Documented by: Throat Lozenges (Benzocaine/Menthol 1 Lozenge) 1 lozenge PO Q2 PRN PRN Reason: Sore throat/cough Last Admin: 12/10/20 07:05 Dose: 1 lozenge Documented by: Zinc Sulfate (Zinc Sulfate 50 Mg Capsule) 50 mg PO DAILY [facility] Last Admin: 12/09/20 08:29 Dose: 50 mg Documented by: A/P Narrative A/P Narrative: A: *Covid pneumonia w/ARDS: *Acute hypoxic respiratory failure: -on vapotherm @ fio2 50% & 35 l/m *h/o Asthma: *Obesity: *thrombocytopenia, unknown chronicity: stable P: -Remdesivir/dexamethasone. s/p Tocilizumab (12/08) -f/u inflammatory markers -O2 supp, wean as able -IS, prn nebs/IH's -Proning, mobilization and oob to chair -pt/ot -ppx: lovenox bid full code Time Spent With Patient Time: Total time spent is greater than 50% in coordination of care (as documented) at patient's floor/unit and/or counseling patient: QUALITY Stroke Symptom Onset Unknown: No VTE Deep Vein Thrombosis/Pulmonary Embolism Present on Admission: No
[2020-12-10] MEDS: FLUTICASONE/SALMETEROL 250/50 INHALER #14 INH SCH (09:11)
[2020-12-10] MEDS: DEXAMETHASONE 4 MG TABLET PO SCH (09:11)
[2020-12-10] MEDS: ZINC SULFATE 50 MG CAPSULE PO SCH (09:11)
[2020-12-10 09:12] LABS: C-Reactive Protein 1.7 mg/dL (0.03-0.80)
[2020-12-10] MEDS: ENOXAPARIN 40 MG/0.4 ML SYRINGE SQ SCH ×2 (09:12→21:15)
[2020-12-10] MEDS: REMDESIVIR 100 MG in 0.9 % SODIUM CHLORIDE 250 ML IV SCH (12:34)
[2020-12-10 14:54] LABS: Appearance,Urine HAZY (Clear); Bacteria,Urine MANY /hpf (0); Bilirubin,Urine Negative (Negative); Color,Urine Yellow; Culture Indicated,Urine yes; Glucose,Urine (UA) Negative (Negative); Ketones,Urine Negative (Negative); Leukocyte Esterase,Urine 75 /ug (Negative); Mucus,Urine MANY /hpf; Nitrate,Urine POS (Negative); Protein,Urine Negative (Negative); Specific Gravity,Urine 1.027 (1.000-1.035); Urine Blood Negative (Negative); Urine RBC 2 /hpf (0-3); Urine Squamous Epithelial Cell 1 /hpf (0-4); Urine WBC 21 /hpf (0-4)
[2020-12-10] MEDS: cefTRIAXone 1 GM VIAL IV SCH (15:40)
[2020-12-10] MEDS: ONDANSETRON 4 MG/2 ML VIAL IV PRN (17:34)
[2020-12-10] MEDS: MONTELUKAST 10 MG TABLET PO SCH (21:15)
[2020-12-11] MEDS: HYDROcodone/APAP 5/325MG TABLET PO PRN ×3 (00:21→19:36)
[2020-12-11] MEDS: BENZONATATE 100 MG CAPSULE PO PRN ×3 (00:21→19:36)
[2020-12-11] MEDS: 0.9 % SODIUM CHLORIDE 10 ML SYRINGE IV SCH ×3 (04:45→22:00)
[2020-12-11] MEDS: SENNOSIDES 1 TABLET PO PRN ×2 (04:54→20:57)
--- NOTE | 2020-12-11 07:41 | Internal Med Progress Note ---
SUBJECTIVE Subjective Patient information: Note initiated : 12/11/20 at 7:40 am Service Date, if different from initiated Date: [] Patient: Sonia Pedro a 50 y/o F admitted on 12/07/20 for Shortness of breath, covid, nausea. Chief Complaint: [] Interval history: History of present illness: Ms. Pedro is a 50 year old F Presents to the ED with shortness of breath and cough. Patient was seen at [facility] on Friday and diagnosed with Covid pneumonia. She went back the next 2 days at [place] and was given oxygen. Because she was not feeling any better she came here. Symptoms also include fever chills diarrhea nausea but no vomiting. She feels her symptoms have worsened and she placed herself on 4 L to keep her oxygen above 94%. She developed some diarrhea as well. Patient states that over week ago she felt she had an asthma exacerbation and then felt to be improving especially on Friday but then Friday started becoming ill again. She is not vaccinated against Covid. In ED she had chest x-ray which showed bilateral infiltrates. She had a temperature of 100.5. 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 Breathing okay at rest but quite short of breath with movement. Inflammatory markers little worse today. Patient on Vapotherm FiO2 70%, patient worsened from the time she arrived in the ED. Has cough. 12/09 Patient feeling better today and slept well. She feels she is able to move around in her bed without becoming severely short of breath. FiO2 down to 65%. Has cough. 12/10 Patient feels like she is slowly improving. FiO2 down to 50% with a flow 35. Laboratory markers improving. Minimal cough. Less shortness of breath. / Patient feeling fairly well. She feels like she continues to feel the breathing better especially when she moves around. Inflammatory markers improved. Review of Systems: denies headache/fever/chills/nausea/vomiting/chest or abdominal pain/diarrhea. Otherwise see above. Constitutional Vitals: Vital Signs Temp Pulse Resp BP Pulse Ox 97.8 F 56 L 15 112/72 96 12/11/20 04:01 12/11/20 06:01 12/11/20 06:01 12/11/20 06:12/11/20 06:01 Period Temp Pulse Resp BP Sys/Lion Pulse Ox Last 24 Hr 97.8 F-98.5 F 49-74 12-23 107-135/66-95 90-97 Intake and Output 12/10/20 12/11/20 12/11/20 21:59 05:59 13:59 Intake Total 730 360 Output Total 175 325 Balance 555 35 Weight 77.882 kg Intake & Output: Intake & Output 12/10/20 12/11/20 12/11/20 21:59 05:59 13:59 Intake Total 730 360 Output Total 175 325 Balance 555 35 Weight 77.882 kg Intake: Nourishment/Supplement quantity 240 240 (ml) IV 250 Veklury 100 mg In Sodium 250 Chloride 0.9% 250 ml @ 500 mls/ hr IV DAILY@1200 [facility] Rx#: [id number] Oral 240 120 Output: Void Amount 175 325 Other: Meal Nourishment/Supplement Nourishment/Supplement Percent of Meal Consumed 50% Nourishment/Supplement name Ensure Clear Ensure Clear Urine Appearance Cloudy Cloudy Urine Color Bright Yellow Bright Yellow Urine Odor Normal Normal Exam: General: Alert, Awake, No acute Distress, obese Eyes/N/T: EOMI, Head/Neck: neck supple, CV: RRR, No murmurs, normal s1/s2 Pulm: mild fine rales b/l, no wheezing Abd: soft, nontender, +BS x4 Ext: no clubbing/cyanosis/edema Neuro: Alert, no focal deficits, moves all extremities, Skin: warm/dry OBJ DATA Labs CBC & Chem 7: 12/08/20 05:53 12/09/20 05:44 Labs: Abnormal Lab Results 12/10/20 12/10/20 12/10/20 12:35 05:25 05:25 Plt Count MPV Neut % (Auto) Lymph % (Auto) Lymph # (Auto) Carbon Dioxide Anion Gap Creatinine Glucose Ferritin 1767.0 H AST ALT Lactate Dehydrogenase Total Creatine Kinase 482 H C-Reactive Protein 1.70 H Urine Appearance Hazy A Urine Nitrate Pos A Urine Urobilinogen 4.0 A Ur Leukocyte Esterase 75 A Urine WBC 21 H Urine Bacteria Many A Urine Mucus Many A 12/09/20 12/09/20 12/08/20 05:44 05:44 05:54 Plt Count MPV Neut % (Auto) Lymph % (Auto) Lymph # (Auto) Carbon Dioxide Anion Gap Creatinine 0.5 L Glucose 185 H Ferritin AST 45 H ALT 42 H Lactate Dehydrogenase 578 H Total Creatine Kinase 456 H 449 H C-Reactive Protein 3.70 H Urine Appearance Urine Nitrate Urine Urobilinogen Ur Leukocyte Esterase Urine WBC Urine Bacteria Urine Mucus 12/08/20 12/08/20 05:53 05:53 Plt Count 117 L MPV 10.8 H Neut % (Auto) 83.7 H Lymph % (Auto) 11.8 L Lymph # (Auto) 0.66 L Carbon Dioxide 20 L Anion Gap 17.0 H Creatinine 0.5 L Glucose 109 H Ferritin 2562.0 H AST 53 H ALT Lactate Dehydrogenase 644 H Total Creatine Kinase C-Reactive Protein 11.10 H Urine Appearance Urine Nitrate Urine Urobilinogen Ur Leukocyte Esterase Urine WBC Urine Bacteria Urine Mucus Meds: Medications Acetaminophen (Acetaminophen 325 Mg Tablet) 650 mg PO Q6HP PRN PRN Reason: PAIN/FEVER > 101 Last Admin: 12/08/20 08:28 Dose: 650 mg Documented by: Hydrocodone Bitart/Acetaminophen (Hydrocodone/Apap 5/325mg Tablet) 1 tab PO Q4HP PRN; Protocol PRN Reason: Per Pain Protocol Last Admin: 12/11/20 00:21 Dose: 1 tab Documented by: Albuterol/Ipratropium (Ipratropium/Albuterol 3 Ml Ampul.Neb) 3 ml NEB Q4HP PRN PRN Reason: Shortness Of Breath Benzonatate (Benzonatate 100 Mg Capsule) 200 mg PO TIDP PRN PRN Reason: Cough Last Admin: 12/11/20 00:21 Dose: 200 mg Documented by: Ceftriaxone Sodium (Ceftriaxone 1 Gm Vial) 1 gm IV Q24H [facility]; Protocol Last Admin: 12/10/20 15:40 Dose: 1 gm Documented by: Dexamethasone (Dexamethasone 4 Mg Tablet) 6 mg PO DAILY [facility] Last Admin: 12/10/20 09:11 Dose: 6 mg Documented by: Enoxaparin Sodium (Enoxaparin 40 Mg/0.4 Ml Syringe) 40 mg SQ BID [facility] Last Admin: 12/10/20 21:15 Dose: 40 mg Documented by: Potassium Chloride 40 meq/ (Dextrose) 520 mls @ 130 mls/hr IV UD PRN PRN Reason: Potassium < 3 Magnesium Sulfate (Magnesium Sulfate) 2 gm in 50 mls @ 50 mls/hr IV UD PRN PRN Reason: Magnesium </= 1.6 REMDESIVIR 100 mg/ Sodium (Chloride) 250 mls @ 500 mls/hr IV DAILY@1200 [facility] Stop: 12/11/20 12:29 Last Infusion: 12/10/20 14:12 Dose: Infused Documented by: Montelukast Sodium (Montelukast 10 Mg Tablet) 10 mg PO HS [facility] Last Admin: 12/10/20 21:15 Dose: 10 mg Documented by: Ondansetron HCl (Ondansetron 4 Mg/2 Ml Vial) 4 mg IV Q4HP PRN PRN Reason: Nausea And Vomiting Last Admin: 12/10/20 17:34 Dose: 4 mg Documented by: Polyethylene Glycol (Polyethylene Glycol 3350 17 Gm Packet) 17 gm PO DAILYP PRN PRN Reason: Constipation Potassium Chloride (Potassium Chloride 20 Meq Tablet) 40 meq PO UD PRN PRN Reason: Potssium is 3-3.5 Potassium Chloride (Potassium Chloride 20 Meq Tablet) 40 meq PO UD PRN PRN Reason: Potassium < 3 Fluticasone/Salmeterol (Fluticasone/Salmeterol 250/50 Inhaler #14) 1 puff INH DAILY [facility] Last Admin: 12/10/20 09:11 Dose: 1 dose Documented by: Senna (Sennosides 1 Tablet) 2 tab PO DAILYP PRN PRN Reason: Constipation Last Admin: 12/11/20 04:54 Dose: 2 tab Documented by: Sodium Chloride (0.9 % Sodium Chloride 10 Ml Syringe) 10 ml IV Q8 [facility] Last Admin: 12/11/20 04:45 Dose: 10 ml Documented by: Throat Lozenges (Benzocaine/Menthol 1 Lozenge) 1 lozenge PO Q2 PRN PRN Reason: Sore throat/cough Last Admin: 12/10/20 17:52 Dose: 1 lozenge Documented by: Zinc Sulfate (Zinc Sulfate 50 Mg Capsule) 50 mg PO DAILY [facility] Last Admin: 12/10/20 09:11 Dose: 50 mg Documented by: A/P Narrative A/P Narrative: A: *Covid pneumonia w/ARDS: *Acute hypoxic respiratory failure: -on vapotherm @ fio2 50% & 35 l/m *UTI: *h/o Asthma: *Obesity: *thrombocytopenia, unknown chronicity: stable P: -Remdesivir/dexamethasone. s/p Tocilizumab (12/08) -O2 supp, wean as able -IS, prn nebs/IH's -Proning, mobilization and oob to chair -Rocephing, pending UC -pt/ot -ppx: lovenox bid full code Time Spent With Patient Time: Total time spent is greater than 50% in coordination of care (as documented) at patient's floor/unit and/or counseling patient: QUALITY Stroke Symptom Onset Unknown: No VTE Deep Vein Thrombosis/Pulmonary Embolism Present on Admission: No
[2020-12-11] MEDS: cefTRIAXone 1 GM VIAL IV SCH (08:07)
[2020-12-11] MEDS: ZINC SULFATE 50 MG CAPSULE PO SCH (08:07)
[2020-12-11] MEDS: ENOXAPARIN 40 MG/0.4 ML SYRINGE SQ SCH ×2 (08:07→20:57)
[2020-12-11] MEDS: DEXAMETHASONE 4 MG TABLET PO SCH (08:07)
[2020-12-11] MEDS: FLUTICASONE/SALMETEROL 250/50 INHALER #14 INH SCH (08:08)
[2020-12-11] MEDS: ONDANSETRON 4 MG/2 ML VIAL IV PRN (08:55)
[2020-12-11] MEDS: REMDESIVIR 100 MG in 0.9 % SODIUM CHLORIDE 250 ML IV SCH (12:13)
[2020-12-11] MEDS: MONTELUKAST 10 MG TABLET PO SCH (20:57)
[2020-12-12] MEDS: HYDROcodone/APAP 5/325MG TABLET PO PRN ×2 (00:23→19:44)
[2020-12-12] MEDS: ACETAMINOPHEN 325 MG TABLET PO PRN ×2 (03:23→10:00)
[2020-12-12] MEDS: 0.9 % SODIUM CHLORIDE 10 ML SYRINGE IV SCH ×5 (03:24→21:55)
[2020-12-12] MEDS: ONDANSETRON 4 MG/2 ML VIAL IV PRN ×2 (07:41→15:06)
[2020-12-12 08:14] LABS: ALT/SGPT 108 U/L (<40); AST/SGOT 57 U/L (<32); Albumin 3.3 gm/dL (3.2-5.2); Albumin/Globulin Ratio 1.4 (1.0-2.3); Alkaline Phosphatase 46 U/L (39-117); Bilirubin,Total 0.4 mg/dL (0.1-1.0); Blood Urea Nitrogen 12 mg/dL (6-20); Calcium 8.7 mg/dL (8.6-10.4); Carbon Dioxide 25 mmol/L (22-30); Chloride 104 mmol/L (96-108); Globulin 2.4 gm/dL (2.2-3.7); Glomerular Filtration Rate 120; Glucose 101 mg/dL (70-105)
[2020-12-12 08:29] LABS: Basophils # (Auto) 0.02 K/mcL (0.00-0.30); Basophils % (Auto) 0.3 % (0.0-2.0); Eosinophils # (Auto) 0.02 K/mcL (0.00-0.70); Eosinophils % (Auto) 0.3 % (0.0-7.0); Hematocrit 40.1 % (34.1-44.9); Hemoglobin 13.5 g/dL (11.2-15.7); Lymphocytes # (Auto) 1.31 K/mcL (1.50-4.80); Lymphocytes % (Auto) 21.2 % (15.5-49.0); Mean Cell Volume 88.9 fL (80.0-100.0); Mean Corpuscular HGB Conc 33.7 g/dL (31.0-36.0); Mean Platelet Volume 10.9 fL (7.4-10.4); Monocytes # (Auto) 0.85 K/mcL (0.10-0.90); Monocytes % (Auto) 13.8 % (1.0-12.0); Neutrophils % (Auto) 64.4 % (38.0-78.0); Platelet Count 215 K/mcL (140-440); RBC 4.51 M/mcL (3.59-5.38); Red Cell Distribution Width 12.6 % (11.5-14.5); WBC 6.2 K/mcL (4.5-11.0)
[2020-12-12] MEDS ORDERED: IPRATROPIUM/ALBUTEROL 3 ML AMPUL.NEB NEB PRN (08:52)
[2020-12-12] MEDS ORDERED: guaiFENesin/DEXTROMETHORPHAN ORAL SOL PO PRN (08:52)
--- NOTE | 2020-12-12 09:07 | Internal Med Progress Note ---
SUBJECTIVE Subjective Patient information: Note initiated : 12/12/20 at 9:01 am Service Date, if different from initiated Date: [] Patient: Sonia Pedro a 50 y/o F admitted on 12/07/20 for Shortness of breath, covid, nausea. Chief Complaint: [CoVID pneumonia] Interval history: History of present illness: Ms. Pedro is a 50 year old F Presents to the ED with shortness of breath and cough. Patient was seen at [facility] on Friday and diagnosed with Covid pneumonia. She went back the next 2 days at [place] and was given oxygen. Because she was not feeling any better she came here. Symptoms also include fever chills diarrhea nausea but no vomiting. She feels her symptoms have worsened and she placed herself on 4 L to keep her oxygen above 94%. She developed some diarrhea as well. Patient states that over week ago she felt she had an asthma exacerbation and then felt to be improving especially on Friday but then Friday started becoming ill again. She is not vaccinated against Covid. In ED she had chest x-ray which showed bilateral infiltrates. She had a temperature of 100.5. 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 Oxygen requirement: @6L/min. Denies SOB. Denies wheezing. Denies cough or sputum production. Denies fever or chills or sweating. Denies muscle aches. Constitutional Vitals: Vital Signs Temp Pulse Resp BP Pulse Ox 36.3 C 53 L 17 106/67 99 12/12/20 08:00 12/12/20 08:00 12/12/20 08:00 12/12/20 08:00 12/12/20 08:00 Period Temp Pulse Resp BP Sys/Lion Pulse Ox Last 24 Hr 36.3 C-36.6 C 49-78 11-22 106-127/60-78 89-99 Intake and Output 12/11/20 12/12/20 12/12/20 21:59 05:59 13:59 Intake Total 600 120 Output Total 800 350 Balance -200 -230 Weight 78.608 kg Intake & Output: Intake & Output 12/11/20 12/12/20 12/12/20 21:59 05:59 13:59 Intake Total 600 120 Output Total 800 350 Balance -200 -230 Weight 78.608 kg Intake: Nourishment/Supplement quantity 240 120 (ml) Oral 360 Output: Void Amount 800 350 Other: Meal Dinner Percent of Meal Consumed 50% Feeding Ability Independent Nourishment/Supplement name Ensure Clear Ensure Clear Urine Appearance Cloudy Clear Urine Color Bright Yellow Bright Yellow Urine Odor Normal Normal General appearance: cooperative and no acute distress Head Head exam: Present atraumatic and normocephalic Eye Eye exam: Present EOMI and PERRL ENT ENT exam: Present mucous membranes moist, normal exam and normal external ear exam Additional comments: Oxygen mask in place Neck Neck exam: Present normal inspection; Absent lymphadenopathy, tenderness and thyromegaly Respiratory Respiratory exam: Present wheezes; Absent accessory muscle use and respiratory distress Cardiovascular Cardiovascular exam: Present normal rate and rhythm; Absent JVD GI/Abdominal GI/Abdominal exam: Present normal bowel sounds and soft; Absent organomegaly and tenderness Extremities Exam Extremities exam: Present full ROM, normal capillary refill and normal inspection; Absent tenderness Neurological Exam Neurological exam: Present alert, CN II-XII intact and oriented X3; Absent motor sensory deficit Psychiatric Psychiatric exam: Present normal affect and normal mood; Absent anxious and depressed Skin Skin exam: Present dry and intact OBJ DATA Labs CBC & Chem 7: 12/12/20 05:47 12/12/20 05:47 Labs: Abnormal Lab Results 12/12/20 12/12/20 12/10/20 05:47 05:47 12:35 MPV 10.9 H [place] % (Auto) 13.8 H Lymph # (Auto) 1.31 L Creatinine 0.4 L Ferritin AST 57 H ALT 108 H Total Creatine Kinase C-Reactive Protein Total Protein 5.7 L Urine Appearance Hazy A Urine Nitrate Pos A Urine Urobilinogen 4.0 A Ur Leukocyte Esterase 75 A Urine WBC 21 H Urine Bacteria Many A Urine Mucus Many A 12/10/20 12/10/20 05:25 05:25 MPV [place] % (Auto) Lymph # (Auto) Creatinine Ferritin 1767.0 H AST ALT Total Creatine Kinase 482 H C-Reactive Protein 1.70 H Total Protein Urine Appearance Urine Nitrate Urine Urobilinogen Ur Leukocyte Esterase Urine WBC Urine Bacteria Urine Mucus Meds: Medications Acetaminophen (Acetaminophen 325 Mg Tablet) 650 mg PO Q6HP PRN PRN Reason: PAIN/FEVER > 101 Last Admin: 12/12/20 03:23 Dose: 650 mg Documented by: Hydrocodone Bitart/Acetaminophen (Hydrocodone/Apap 5/325mg Tablet) 1 tab PO Q4HP PRN; Protocol PRN Reason: Per Pain Protocol Last Admin: 12/12/20 00:23 Dose: 1 tab Documented by: Albuterol/Ipratropium (Ipratropium/Albuterol 3 Ml Ampul.Neb) 3 ml NEB Q4HP PRN PRN Reason: Shortness Of Breath Albuterol/Ipratropium (Ipratropium/Albuterol 3 Ml Ampul.Neb) 3 ml NEB Q4HP PRN PRN Reason: Shortness Of Breath Benzonatate (Benzonatate 100 Mg Capsule) 200 mg PO TIDP PRN PRN Reason: Cough Last Admin: 12/11/20 19:36 Dose: 200 mg Documented by: Ceftriaxone Sodium (Ceftriaxone 1 Gm Vial) 1 gm IV Q24H [facility]; Protocol Last Admin: 12/11/20 08:07 Dose: 1 gm Documented by: Dexamethasone (Dexamethasone 4 Mg Tablet) 6 mg PO DAILY [facility] Last Admin: 12/11/20 08:07 Dose: 6 mg Documented by: Docusate Sodium (Docusate Sodium 100 Mg Capsule) 200 mg PO BID [facility] Enoxaparin Sodium (Enoxaparin 40 Mg/0.4 Ml Syringe) 40 mg SQ BID [facility] Last Admin: 12/11/20 20:57 Dose: 40 mg Documented by: Guaifenesin (Guaifenesin/Dextromethorphan Oral Zeenat) 10 ml PO Q4HP PRN PRN Reason: Cough Potassium Chloride 40 meq/ (Dextrose) 520 mls @ 130 mls/hr IV UD PRN PRN Reason: Potassium < 3 Magnesium Sulfate (Magnesium Sulfate) 2 gm in 50 mls @ 50 mls/hr IV UD PRN PRN Reason: Magnesium </= 1.6 REMDESIVIR 100 mg/ Sodium (Chloride) 250 mls @ 500 mls/hr IV Q24H [facility] Stop: 12/15/20 12:29 Montelukast Sodium (Montelukast 10 Mg Tablet) 10 mg PO HS [facility] Last Admin: 12/11/20 20:57 Dose: 10 mg Documented by: Ondansetron HCl (Ondansetron 4 Mg/2 Ml Vial) 4 mg IV Q4HP PRN PRN Reason: Nausea And Vomiting Last Admin: 12/12/20 07:41 Dose: 4 mg Documented by: Polyethylene Glycol (Polyethylene Glycol 3350 17 Gm Packet) 17 gm PO DAILYP PRN PRN Reason: Constipation Last Admin: 12/12/20 07:41 Dose: 17 gm Documented by: Potassium Chloride (Potassium Chloride 20 Meq Tablet) 40 meq PO UD PRN PRN Reason: Potssium is 3-3.5 Potassium Chloride (Potassium Chloride 20 Meq Tablet) 40 meq PO UD PRN PRN Reason: Potassium < 3 Fluticasone/Salmeterol (Fluticasone/Salmeterol 250/50 Inhaler #14) 1 puff INH DAILY [facility] Last Admin: 12/11/20 08:08 Dose: 1 dose Documented by: Senna (Sennosides 1 Tablet) 2 tab PO DAILYP PRN PRN Reason: Constipation Last Admin: 12/11/20 20:57 Dose: 2 tab Documented by: Sodium Chloride (0.9 % Sodium Chloride 10 Ml Syringe) 10 ml IV Q8 [facility] Last Admin: 12/12/20 06:04 Dose: Not Given Documented by: Throat Lozenges (Benzocaine/Menthol 1 Lozenge) 1 lozenge PO Q2 PRN PRN Reason: Sore throat/cough Last Admin: 12/10/20 17:52 Dose: 1 lozenge Documented by: Zinc Sulfate (Zinc Sulfate 50 Mg Capsule) 50 mg PO DAILY [facility] Last Admin: 12/11/20 08:07 Dose: 50 mg Documented by: A/P Assessment and plan (1) Pneumonia due to COVID-19 virus: Status: Acute (2) Hypoxia: Status: Acute (3) E. coli UTI: Status: Acute Narrative A/P Narrative: Assessment and Plans: 1. CoVID pneumonia: Stays in inpatient PCU Oxygen therapy titrate to achieve spo2 >=92% Isolation: airborne and contact cbc w/ auto diff daily to trend WBC CXR every few days Remdesivir Dexamethasone Lovenox Tylenol PRN fever Robitussin DM PRN cough DuoNEB NEB q4hr PRN wheezing or SOB 2. E coli UTI: Urine culture growing E coli, sensitive to Rocephin Rocephin Tylenol PRN fever cbc w/ auto diff in the morning to trend WBC GI ppx: not currently indicated DVT ppx: Lovenox Code status: Full Prognosis: guarded Disposition: inpatient PCU Time Spent With Patient Time: Total time spent is greater than 50% in coordination of care (as documented) at patient's floor/unit and/or counseling patient: Total time spent with greater than 50% in coordination of care (as documented) at patient's floor/unit and/or counseling patient:: 25 - 35 minutes QUALITY Stroke Symptom Onset Unknown: No VTE Deep Vein Thrombosis/Pulmonary Embolism Present on Admission: No
[2020-12-12] MEDS: ZINC SULFATE 50 MG CAPSULE PO SCH (09:47)
[2020-12-12] MEDS: ENOXAPARIN 40 MG/0.4 ML SYRINGE SQ SCH ×2 (09:47→21:43)
[2020-12-12] MEDS: FLUTICASONE/SALMETEROL 250/50 INHALER #14 INH SCH (09:47)
[2020-12-12] MEDS: DOCUSATE SODIUM 100 MG CAPSULE PO SCH ×2 (09:47→21:43)
[2020-12-12] MEDS: DEXAMETHASONE 4 MG TABLET PO SCH (09:47)
[2020-12-12] MEDS: cefTRIAXone 1 GM VIAL IV SCH (09:49)
[2020-12-12] MEDS: BENZONATATE 100 MG CAPSULE PO PRN ×2 (10:35→21:43)
[2020-12-12] MEDS ORDERED: METOCLOPRAMIDE 10 MG/2 ML VIAL IV PRN (10:56)
[2020-12-12] MEDS ORDERED: BISACODYL 10 MG SUPP.RECT PR PRN (11:37)
[2020-12-12] MEDS ORDERED: REMDESIVIR 100 MG in 0.9 % SODIUM CHLORIDE 250 ML IV SCH (12:00)
--- NOTE | 2020-12-12 14:07 | EKG ---
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 Measurements Intervals [place] Rate: 81 P: 43 RI: 150 QRS: -29 QRSD: 90 T: 5 QT: 348 QTc: 404 Interpretive Statements Sinus rhythm LVH by voltage Electronically Signed On 12-12-2020 14:06:53 PDT by Eddie Khan M.D. /store/[email or web address]/[id number]
[2020-12-12] MEDS: MONTELUKAST 10 MG TABLET PO SCH (21:43)
[2020-12-13] MEDS: HYDROcodone/APAP 5/325MG TABLET PO PRN (00:30)
[2020-12-13] MEDS: 0.9 % SODIUM CHLORIDE 10 ML SYRINGE IV SCH ×4 (04:45→22:37)
[2020-12-13 07:09] LABS: Basophils # (Auto) 0.02 K/mcL (0.00-0.30); Basophils % (Auto) 0.3 % (0.0-2.0); Eosinophils # (Auto) 0.08 K/mcL (0.00-0.70); Hematocrit 41.1 % (34.1-44.9); Hemoglobin 13.8 g/dL (11.2-15.7); Lymphocytes # (Auto) 1.41 K/mcL (1.50-4.80); Lymphocytes % (Auto) 18.4 % (15.5-49.0); Mean Cell Volume 87.4 fL (80.0-100.0); Mean Corpuscular HGB Conc 33.6 g/dL (31.0-36.0); Mean Platelet Volume 11.1 fL (7.4-10.4); Monocytes # (Auto) 0.65 K/mcL (0.10-0.90); Monocytes % (Auto) 8.5 % (1.0-12.0); Neutrophils % (Auto) 71.8 % (38.0-78.0); Platelet Count 250 K/mcL (140-440); Red Cell Distribution Width 12.7 % (11.5-14.5); WBC 7.7 K/mcL (4.5-11.0)
[2020-12-13 07:40] LABS: ALT/SGPT 132 U/L (<40); AST/SGOT 55 U/L (<32); Albumin 3.4 gm/dL (3.2-5.2); Albumin/Globulin Ratio 1.5 (1.0-2.3); Alkaline Phosphatase 45 U/L (39-117); Bilirubin,Total 0.5 mg/dL (0.1-1.0); Blood Urea Nitrogen 12 mg/dL (6-20); Carbon Dioxide 27 mmol/L (22-30); Chloride 102 mmol/L (96-108); Globulin 2.3 gm/dL (2.2-3.7); Glomerular Filtration Rate 111; Glucose 87 mg/dL (70-105)
[2020-12-13] MEDS: ACETAMINOPHEN 325 MG TABLET PO PRN (08:16)
[2020-12-13] MEDS: ENOXAPARIN 40 MG/0.4 ML SYRINGE SQ SCH ×2 (08:16→20:11)
[2020-12-13] MEDS: DEXAMETHASONE 4 MG TABLET PO SCH (08:17)
[2020-12-13] MEDS: BENZONATATE 100 MG CAPSULE PO PRN ×2 (08:17→16:33)
[2020-12-13] MEDS: DOCUSATE SODIUM 100 MG CAPSULE PO SCH ×2 (08:17→20:12)
[2020-12-13] MEDS: ZINC SULFATE 50 MG CAPSULE PO SCH (08:17)
[2020-12-13] MEDS: FLUTICASONE/SALMETEROL 250/50 INHALER #14 INH SCH (08:19)
[2020-12-13] MEDS ORDERED: BISACODYL 10 MG SUPP.RECT PR PRN (09:20)
[2020-12-13] MEDS ORDERED: POTASSIUM CHLORIDE 20 MEQ TABLET PO PRN ×2 (09:20)
[2020-12-13] MEDS ORDERED: IPRATROPIUM/ALBUTEROL 3 ML AMPUL.NEB NEB PRN (09:20)
[2020-12-13] MEDS ORDERED: ONDANSETRON 4 MG/2 ML VIAL IV PRN (09:20)
[2020-12-13] MEDS ORDERED: SENNOSIDES 1 TABLET PO PRN (09:20)
[2020-12-13] MEDS ORDERED: POTASSIUM CHLORIDE 40 MEQ in DEXTROSE 5% IN WATER 500 ML IV PRN (09:20)
[2020-12-13] MEDS ORDERED: POLYETHYLENE GLYCOL 3350 17 GM PACKET PO PRN (09:20)
[2020-12-13] MEDS ORDERED: guaiFENesin/DEXTROMETHORPHAN ORAL SOL PO PRN (09:20)
[2020-12-13] MEDS ORDERED: MAGNESIUM SULFATE 2 GM/50 ML BAG IV PRN (09:20)
[2020-12-13] MEDS ORDERED: BENZOCAINE/MENTHOL 1 LOZENGE PO PRN (09:20)
[2020-12-13] MEDS ORDERED: METOCLOPRAMIDE 10 MG/2 ML VIAL IV PRN (09:20)
[2020-12-13] MEDS ORDERED: ACETAMINOPHEN 325 MG TABLET PO PRN (09:20)
[2020-12-13] MEDS ORDERED: HYDROcodone/APAP 5/325MG TABLET PO PRN (09:20)
--- NOTE | 2020-12-13 09:22 | Internal Med Progress Note ---
SUBJECTIVE Subjective Patient information: Note initiated : 12/13/20 at 9:19 am Service Date, if different from initiated Date: [] Patient: Sonia Pedro a 50 y/o F admitted on 12/07/20 for Shortness of breath, covid, nausea. Chief Complaint: [CoVID pneumonia] Interval history: History of present illness: Ms. Pedro is a 50 year old F Presents to the ED with shortness of breath and cough. Patient was seen at [facility] on Friday and diagnosed with Covid pneumonia. She went back the next 2 days at [place] and was given oxygen. Because she was not feeling any better she came here. Symptoms also include fever chills diarrhea nausea but no vomiting. She feels her symptoms have worsened and she placed herself on 4 L to keep her oxygen above 94%. She developed some diarrhea as well. Patient states that over week ago she felt she had an asthma exacerbation and then felt to be improving especially on Friday but then Friday started becoming ill again. She is not vaccinated against Covid. In ED she had chest x-ray which showed bilateral infiltrates. She had a temperature of 100.5. 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 Oxygen requirement: @6L/min. Denies SOB. Denies wheezing. Denies cough or sputum production. Denies fever or chills or sweating. Denies muscle aches. 12/13: Afebrile overnight. On 4L/min nasal cannula oxygen. c/o SOB. c/o productive cough with clear sputum. Denies wheezing. Denies fever or chills. Denies general body weakness. Denies muscle aches. Constitutional Vitals: Vital Signs Temp Pulse Resp BP Pulse Ox 36.3 C 57 L 14 108/69 95 12/13/20 08:01 12/13/20 08:19 12/13/20 08:19 12/13/20 08:01 12/13/20 08:19 Period Temp Pulse Resp BP Sys/Lion Pulse Ox Last 24 Hr 36.3 C-36.7 C 50-79 13-22 103-131/68-95 90-97 Intake and Output 12/12/20 12/13/20 12/13/20 21:59 05:59 13:59 Intake Total 840 360 Output Total 1150 450 Balance -310 -90 Weight 78.018 kg Intake & Output: Intake & Output 12/12/20 12/13/20 12/13/20 21:59 05:59 13:59 Intake Total 840 360 Output Total 1150 450 Balance -310 -90 Weight 78.018 kg Intake: Nourishment/Supplement quantity 240 240 (ml) Oral 600 120 Output: Void Amount 750 450 Urine/Stool Mix 400 Other: Meal Dinner Nourishment/Supplement Percent of Meal Consumed 75% Feeding Ability Independent Nourishment/Supplement name Ensure Clear Ensure Clear Urine Appearance Clear Clear Urine Color Bright Yellow Bright Yellow Urine Odor Normal Stool Size Large Stool Color Brown Stool Consistency Soft Liquid Loose # of times incontinent of 1 Bowels OBJ DATA Labs CBC & Chem 7: 12/13/20 05:35 12/13/20 05:34 Labs: Abnormal Lab Results 12/13/20 12/13/20 12/12/20 05:35 05:34 05:47 MPV 11.1 H [place] % (Auto) Lymph # (Auto) 1.41 L Creatinine 0.5 L 0.4 L AST 55 H 57 H ALT 132 H 108 H Total Protein 5.7 L 5.7 L Urine Appearance Urine Nitrate Urine Urobilinogen Ur Leukocyte Esterase Urine WBC Urine Bacteria Urine Mucus 12/12/20 12/10/20 05:47 12:35 MPV 10.9 H [place] % (Auto) 13.8 H Lymph # (Auto) 1.31 L Creatinine AST ALT Total Protein Urine Appearance Hazy A Urine Nitrate Pos A Urine Urobilinogen 4.0 A Ur Leukocyte Esterase 75 A Urine WBC 21 H Urine Bacteria Many A Urine Mucus Many A Meds: Medications Acetaminophen (Acetaminophen 325 Mg Tablet) 650 mg PO Q6HP PRN PRN Reason: PAIN/FEVER > 101 Last Admin: 12/13/20 08:16 Dose: 650 mg Documented by: Hydrocodone Bitart/Acetaminophen (Hydrocodone/Apap 5/325mg Tablet) 1 tab PO Q4HP PRN; Protocol PRN Reason: Per Pain Protocol Last Admin: 12/13/20 00:30 Dose: 1 tab Documented by: Albuterol/Ipratropium (Ipratropium/Albuterol 3 Ml Ampul.Neb) 3 ml NEB Q4HP PRN PRN Reason: Shortness Of Breath Albuterol/Ipratropium (Ipratropium/Albuterol 3 Ml Ampul.Neb) 3 ml NEB Q4HP PRN PRN Reason: Shortness Of Breath Benzonatate (Benzonatate 100 Mg Capsule) 200 mg PO TIDP PRN PRN Reason: Cough Last Admin: 12/13/20 08:17 Dose: 200 mg Documented by: Bisacodyl (Bisacodyl 10 Mg Supp.Rect) 10 mg FL Q2-3DAYS PRN PRN Reason: Constipation Last Admin: 12/12/20 11:45 Dose: 10 mg Documented by: Ceftriaxone Sodium (Ceftriaxone 1 Gm Vial) 1 gm IV Q24H [facility]; Protocol Last Admin: 12/12/20 09:49 Dose: 1 gm Documented by: Dexamethasone (Dexamethasone 4 Mg Tablet) 6 mg PO DAILY [facility] Last Admin: 12/13/20 08:17 Dose: 6 mg Documented by: Docusate Sodium (Docusate Sodium 100 Mg Capsule) 200 mg PO BID [facility] Last Admin: 12/13/20 08:17 Dose: 200 mg Documented by: Enoxaparin Sodium (Enoxaparin 40 Mg/0.4 Ml Syringe) 40 mg SQ BID [facility] Last Admin: 12/13/20 08:16 Dose: 40 mg Documented by: Guaifenesin (Guaifenesin/Dextromethorphan Oral Zeenat) 10 ml PO Q4HP PRN PRN Reason: Cough Potassium Chloride 40 meq/ (Dextrose) 520 mls @ 130 mls/hr IV UD PRN PRN Reason: Potassium < 3 Magnesium Sulfate (Magnesium Sulfate) 2 gm in 50 mls @ 50 mls/hr IV UD PRN PRN Reason: Magnesium </= 1.6 REMDESIVIR 100 mg/ Sodium (Chloride) 250 mls @ 500 mls/hr IV Q24H [facility] Stop: 12/16/20 12:29 Last Infusion: 12/12/20 13:50 Dose: Infused Documented by: Metoclopramide HCl (Metoclopramide 10 Mg/2 Ml Vial) 10 mg IV Q6HP PRN PRN Reason: Nausea And Vomiting Last Admin: 12/12/20 11:00 Dose: 10 mg Documented by: Montelukast Sodium (Montelukast 10 Mg Tablet) 10 mg PO HS [facility] Last Admin: 12/12/20 21:43 Dose: 10 mg Documented by: Ondansetron HCl (Ondansetron 4 Mg/2 Ml Vial) 4 mg IV Q4HP PRN PRN Reason: Nausea And Vomiting Last Admin: 12/12/20 15:06 Dose: 4 mg Documented by: Polyethylene Glycol (Polyethylene Glycol 3350 17 Gm Packet) 17 gm PO DAILYP PRN PRN Reason: Constipation Last Admin: 12/12/20 07:41 Dose: 17 gm Documented by: Potassium Chloride (Potassium Chloride 20 Meq Tablet) 40 meq PO UD PRN PRN Reason: Potssium is 3-3.5 Last Admin: 12/12/20 19:43 Dose: 40 meq Documented by: Potassium Chloride (Potassium Chloride 20 Meq Tablet) 40 meq PO UD PRN PRN Reason: Potassium < 3 Fluticasone/Salmeterol (Fluticasone/Salmeterol 250/50 Inhaler #14) 1 puff INH DAILY [facility] Last Admin: 12/13/20 08:19 Dose: 1 dose Documented by: Senna (Sennosides 1 Tablet) 2 tab PO DAILYP PRN PRN Reason: Constipation Last Admin: 12/11/20 20:57 Dose: 2 tab Documented by: Sodium Chloride (0.9 % Sodium Chloride 10 Ml Syringe) 10 ml IV Q8 [facility] Last Admin: 12/13/20 04:45 Dose: 10 ml Documented by: Throat Lozenges (Benzocaine/Menthol 1 Lozenge) 1 lozenge PO Q2 PRN PRN Reason: Sore throat/cough Last Admin: 12/10/20 17:52 Dose: 1 lozenge Documented by: Zinc Sulfate (Zinc Sulfate 50 Mg Capsule) 50 mg PO DAILY [facility] Last Admin: 12/13/20 08:17 Dose: 50 mg Documented by: A/P Assessment and plan (1) Pneumonia due to COVID-19 virus: Status: Acute (2) Hypoxia: Status: Acute (3) E. coli UTI: Status: Acute Narrative A/P Narrative: Assessment and Plans: 1. CoVID pneumonia: Transfer to inpatient med surg telemetry Oxygen therapy titrate to achieve spo2 >=92% Isolation: airborne and contact cbc w/ auto diff daily to trend WBC CXR every few days Remdesivir X10 days Dexamethasone Lovenox Tylenol PRN fever Robitussin DM PRN cough DuoNEB NEB q4hr PRN wheezing or SOB 2. E coli UTI: Urine culture growing E coli, sensitive to Rocephin Rocephin Tylenol PRN fever cbc w/ auto diff in the morning to trend WBC GI ppx: not currently indicated DVT ppx: Lovenox Code status: Full Prognosis: stable Disposition: inpatient med surg telemetry Time Spent With Patient Time: Total time spent is greater than 50% in coordination of care (as documented) at patient's floor/unit and/or counseling patient: QUALITY Stroke Symptom Onset Unknown: No VTE Deep Vein Thrombosis/Pulmonary Embolism Present on Admission: No
[2020-12-13] MEDS: cefTRIAXone 1 GM VIAL IV SCH ×2 (09:25→10:31)
[2020-12-13] MEDS: PANTOPRAZOLE 40 MG TABLET PO SCH (10:31)
[2020-12-13] MEDS: REMDESIVIR 100 MG in 0.9 % SODIUM CHLORIDE 250 ML IV SCH (12:22)
[2020-12-13] MEDS ORDERED: MONTELUKAST 10 MG TABLET PO SCH ×2 (21:00)
[2020-12-14] MEDS: 0.9 % SODIUM CHLORIDE 10 ML SYRINGE IV SCH ×2 (04:43→13:35)
[2020-12-14] MEDS: BENZONATATE 100 MG CAPSULE PO PRN ×2 (04:43→12:05)
[2020-12-14 06:34] LABS: Basophils # (Auto) 0.01 K/mcL (0.00-0.30); Basophils % (Auto) 0.1 % (0.0-2.0); Eosinophils # (Auto) 0.15 K/mcL (0.00-0.70); Eosinophils % (Auto) 2.1 % (0.0-7.0); Hematocrit 40.9 % (34.1-44.9); Hemoglobin 13.7 g/dL (11.2-15.7); Lymphocytes % (Auto) 17.9 % (15.5-49.0); Mean Cell Volume 87.8 fL (80.0-100.0); Mean Corpuscular HGB Conc 33.5 g/dL (31.0-36.0); Monocytes # (Auto) 0.57 K/mcL (0.10-0.90); Monocytes % (Auto) 7.8 % (1.0-12.0); Neutrophils % (Auto) 72.1 % (38.0-78.0); Platelet Count 255 K/mcL (140-440); RBC 4.66 M/mcL (3.59-5.38); Red Cell Distribution Width 12.3 % (11.5-14.5); WBC 7.3 K/mcL (4.5-11.0)
[2020-12-14] MEDS: PANTOPRAZOLE 40 MG TABLET PO SCH (07:09)
[2020-12-14 07:11] LABS: ALT/SGPT 130 U/L (<40); AST/SGOT 38 U/L (<32); Albumin 3.1 gm/dL (3.2-5.2); Albumin/Globulin Ratio 1.2 (1.0-2.3); Alkaline Phosphatase 54 U/L (39-117); Bilirubin,Total 0.5 mg/dL (0.1-1.0); Blood Urea Nitrogen 12 mg/dL (6-20); Calcium 8.7 mg/dL (8.6-10.4); Carbon Dioxide 27 mmol/L (22-30); Chloride 100 mmol/L (96-108); Globulin 2.6 gm/dL (2.2-3.7); Glomerular Filtration Rate 111; Glucose 125 mg/dL (70-105)
[2020-12-14] MEDS ORDERED: ZINC SULFATE 50 MG CAPSULE PO SCH (09:00)
[2020-12-14] MEDS ORDERED: DEXAMETHASONE 4 MG TABLET PO SCH (09:00)
[2020-12-14] MEDS ORDERED: FLUTICASONE/SALMETEROL 250/50 INHALER #14 INH SCH (09:00)
[2020-12-14] MEDS: DOCUSATE SODIUM 100 MG CAPSULE PO SCH (09:18)
[2020-12-14] MEDS: ENOXAPARIN 40 MG/0.4 ML SYRINGE SQ SCH (09:22)
[2020-12-14] MEDS: cefTRIAXone 1 GM VIAL IV SCH (09:23)
--- NOTE | 2020-12-14 10:39 | Discharge Summary ---
Discharge Provider Provider Patient information: Note initiated : 12/14/20 at 10:36 am Service Date, if different from initiated Date: [] Patient: Sonia Pedro 50 y/o F admitted on 12/07/20 for Shortness of breath, covid, nausea. Chief Complaint: [CoVID pneumonia] Date of admission: 12/07/20 17:58 Discharge date: 12/14/20 Primary care physician: Davina Ravi MD Consults: 12/07/20 Consult to Physician [CONS] Stat Comment: Consulting Provider: Ashok Daniel Reason For Exam: Physician to Consult Discharge Meds Discharge Medications Home Medications albuterol sulfate 2 puff INHALATION QID PRN 12/07/20 [History Confirmed 12/07/20 Last Taken 11/30/20 18:00] fluticasone propion-salmeterol 1 inh INHALATION DAILY 12/07/20 [History Confirmed 12/07/20 Last Taken 12/06/20 16:00] montelukast [Singulair] 10 mg PO QHS 12/07/20 [History Confirmed 12/07/20 Last Taken 12/06/20 20:00] benzocaine-menthol [Cepacol Sore Throat (paul-men)] 1 elis PO Q2 PRN #16 ea 12/14/20 [Rx Last Taken Unknown] dextromethorphan-guaifenesin [Robafen DM Cough] 10 ml PO Q4HP PRN #500 ml 12/14/20 [Rx Last Taken Unknown] COURSE Hospital Course Hospital course: Patient was admitted on December 07, 2020 for Covid pneumonia. Stented Covid pneumonia treatment including supplemental oxygen's, first via high flow oxygen and subsequently being weaned down to nasal cannula oxygen, remdesivir, dexamethasone, and anticoagulations in terms of Lovenox were all given. A dose of monoclonal antibodies against Covid pneumonia Tocilizumab was also being given on December 08. Patient was also being diagnosed with E. coli urinary tract infections and she was being treated with a 5-day course of Rocephin. Patient has a gradual and steady course of recovery and by December 14, patient oxygen requirements was down to 3 L/min and she has been afebrile for more than 24 hours, any leukocytosis resolved, and does not reach clinical stability. The decision was thus made to discharge patient home with home oxygen. 2 weeks PCP follow-up appointment made for the patient. All questions were answered prior to patient being physically discharged. Discharge diagnosis: CoVID pneumonia Time Spent with Patient Time attestation: Total time spent providing and/or coordinating discharge services: Patient was admitted on December 07, 2020 for Covid pneumonia. Stented Covid pneumonia treatment including supplemental oxygen's, first via high flow oxygen and subsequently being weaned down to nasal cannula oxygen, remdesivir, dexamethasone, and anticoagulations in terms of Lovenox were all given. A dose of monoclonal antibodies against Covid pneumonia Tocilizumab was also being given on December 08. Patient was also being diagnosed with E. coli urinary tract infections and she was being treated with a 5-day course of Rocephin. Patient has a gradual and steady course of recovery and by December 14, patient oxygen requirements was down to 3 L/min and she has been afebrile for more than 24 hours, any leukocytosis resolved, and does not reach clinical stability. The decision was thus made to discharge patient home with home oxygen. 2 weeks PCP follow-up appointment made for the patient. All questions were answered prior to patient being physically discharged. EXAM Constitutional Vitals: Temp Pulse Resp BP Pulse Ox 36.5 C 59 L 20 112/68 93 12/14/20 07:12 12/14/20 07:12 12/14/20 07:12 12/14/20 07:12 12/14/20 08:04 General appearance: cooperative and no acute distress Head Head exam: Present atraumatic and normocephalic Eye Eye exam: Present EOMI and PERRL ENT ENT exam: Present mucous membranes moist, normal exam and normal external ear exam Additional comments: Nasal cannula in place Neck Neck exam: Present normal inspection; Absent lymphadenopathy, tenderness and thyromegaly Respiratory Respiratory exam: Absent accessory muscle use, respiratory distress and wheezes Cardiovascular Cardiovascular exam: Present normal rate and rhythm; Absent JVD GI/Abdominal GI/Abdominal exam: Present normal bowel sounds and soft; Absent organomegaly and tenderness Extremities Exam Extremities exam: Present full ROM, normal capillary refill and normal inspect ion; Absent tenderness Neurological Exam Neurological exam: Present alert, CN II-XII intact and oriented X3; Absent motor sensory deficit Psychiatric Psychiatric exam: Present normal affect and normal mood; Absent anxious and depressed Skin Skin exam: Present dry and intact Discharge Data Data Completed and Pending Labs on day of discharge: Labs from last 24 hours 12/14/20 12/14/20 05:37 05:37 WBC 7.3 RBC 4.66 Hgb 13.7 Hct 40.9 MCV 87.8 MCH 29.4 MCHC 33.5 RDW 12.3 Plt Count 255 MPV 11.0 H Neut % (Auto) 72.1 Lymph % (Auto) 17.9 [place] % (Auto) 7.8 Eos % (Auto) 2.1 Baso % (Auto) 0.1 Lymph # (Auto) 1.30 L [place] # (Auto) 0.57 Eos # (Auto) 0.15 Baso # (Auto) 0.01 Absolute Neutrophils 5.24 Sodium 137 Potassium 3.7 Chloride 100 Carbon Dioxide 27 Anion Gap 10.0 BUN 12 Creatinine 0.5 L GFR Calculation 111 Glucose 125 H Calcium 8.7 Total Bilirubin 0.5 AST 38 H ALT 130 H Alkaline Phosphatase 54 Total Protein 5.7 L Albumin 3.1 L Globulin 2.6 Albumin/Globulin Ratio 1.2 Discharge Plan Patient/Caregiver Discharge Instructions Activity: increase activity as tolerated Diet: Regular Diet Prescriptions: New Cepacol Sore Throat (paul-men) 15-2.6 mg Lozenge 1 elis PO Q2 PRN (Reason: Sore throat/cough) Qty: 16 RF: 0 dextromethorphan-guaifenesin [Robafen DM Cough] 10-100 mg/5 mL Liquid 10 ml PO Q4HP PRN (Reason: Cough) Qty: 500 RF: 0 Continued montelukast [Singulair] 10 mg Tablet 10 mg PO QHS RF: 0 fluticasone propion-salmeterol 250-50 mcg/dose Blister With Device 1 inh INHALATION DAILY RF: 0 albuterol sulfate 90 mcg/actuation Hfa Aerosol Inhaler 2 puff INHALATION QID PRN (Reason: Shortness Of Breath) RF: 0 Follow Up Plan Follow up with: Davina Ravi MD [Primary Care Provider] - (2 week PCP ) Patient Disposition: Home, Self-Care Rehab Potential: Good I certify that the patient requires SNF services: No Overall status at discharge: patient is progressing back to baseline Discharge Orders: Discharge Order (Routine); Ordered 09/09/21 Ordered By: Andrea ORELLANA VTE Deep Vein Thrombosis/Pulmonary Embolism Present on Admission: No
[2020-12-14] MEDS: REMDESIVIR 100 MG in 0.9 % SODIUM CHLORIDE 250 ML IV SCH (11:59)
== END 2020-12-14 13:55 | disposition home or self-care (01) | DRG 177 ==
LOC: ED 12:35 → ICU 17:58 → MEDSUR 12-13 11:58
PROVIDERS: ADMIT Internal Medicine; ATTEND Internal Medicine